=== PATIENT | male | born 1965 | race Caucasian/White ===

== ENCOUNTER 2019-09-15 21:01 | Inpatient (IN) | payer SELFPAY ==
[~2019-09-15] VITALS: Ht 177.8 cm; Wt 88.9 kg
[2019-09-15] MEDS ORDERED: ACETAMINOPHEN 325 MG TAB PO ONE (21:30)
[2019-09-15] MEDS ORDERED: ONDANSETRON HCL INJ 2MG/ML 2ML 2 MG/ML VIAL IV STA (22:02)
[2019-09-15] MEDS ORDERED: AZITHROMYCIN 500MG/NS 250 ML 250 ML IV ONE (22:15)
[2019-09-15] MEDS ORDERED: LIDOCAINE VISC 2% SOLN 15 ML UDC PO ONE (22:15)
[2019-09-15 23:37] LABS: BASOPHILS % 0.1 % (0.0-1.0); HEMATOCRIT 46.2 % (38.2-49.6); LYMPHOCYTES # (AUTO) 0.6 (1.0-3.2); LYMPHOCYTES % 4.2 % (18.0-39.1); MEAN CORPUSCULAR HGB CONC 34.6 g/dL (31-35); MEAN CORPUSCULAR VOLUME 83.7 fL (81-99); MONOCYTES # (AUTO) 0.4 (0.2-0.8); NEUTROPHILS # (AUTO) 13.3 (2.1-6.9); NEUTROPHILS % 91.8 % (38.7-80.0); PLATELET COUNT 234 x10e3/uL (140-360); RED BLOOD COUNT 5.52 x10e6/uL (4.3-5.7); RED CELL DISTRIBUTION WIDTH 12.8 % (11.7-14.4)
--- NOTE | 2019-09-15 23:38 | Diagnostic Imaging Report ---
EXAMINATION: CXR 2 VIEW - HOPD INDICATION: ^fever/cough/COVID+ COMPARISON: None FINDINGS: TUBES and LINES: None. LUNGS: Patchy opacity in the left lower lobe. Calcified granuloma in the mid right lung. PLEURA: No pleural effusion or pneumothorax. HEART AND MEDIASTINUM: The cardiomediastinal silhouette is unremarkable. BONES AND SOFT TISSUES: No acute osseous lesion. Soft tissues are unremarkable. UPPER ABDOMEN: No free air under the diaphragm. IMPRESSION: Patchy opacity in the left lower lobe concerning for pneumonia. Signed by: Rush Whitney MD on 09/15/2019 11:35 PM
[2019-09-16] VITALS (10 sets, daily range): BP systolic 112–158; BP diastolic 62–89
[2019-09-16] MEDS ORDERED: SODIUM CHLORIDE FLUSH 10 ML SYR INJ PRN (00:30)
[2019-09-16] MEDS ORDERED: CEFTRIAXONE SOD 1 GM/NS 50 ML 50 ML IV ONE (00:30)
--- OUTSIDE RECORDS SUMMARY | 2019-09-16 01:01 | XMS REPORT | Continuity of Care Document ---
Author Author [facility] Organization [facility] Address [address] [place] [id number] Phone Unavailable Care Team Providers [facility] Worker Name Role Phone Tyrone THOMSON Attphys Unavailable Problems This patient has no known problems. Allergies, Adverse Reactions, Alerts This patient has no known allergies or adverse reactions. Medications This patient has no known medications. Procedures This patient has no known procedures. Results Test Description Test Time Test Comments Results Result Comments Source CXR 2 VIEW - HOPD 2019-09-15 23:33:00 [place] [address] Patient Name: CHLOÉ CALLAHAN MR #: [id number] : 1965 Age/Sex: 54/M Req #: [id number] Adm Physician: Ordered by: MAT THOMSON MD Report #: [id number] Location: [facility] Room/Bed: Procedure: [id number] HOPD/CXR 2 VIEW - HOPD Exam Date: 09/15/19 Exam Time: 2225 REPORT STATUS: Signed EXAMINATION: CXR 2 VIEW - HOPD INDICATION: fever/cough/COVID+ COMPARISON: None FINDINGS: TUBES and LINES: None. LUNGS: Patchy opacity in the left lower lobe. Calcified granuloma in the mid right lung. PLEURA: No pleural effusion or pneumothorax. HEART AND MEDIASTINUM: The cardiomediastinal silhouette is unremarkable. BONES AND SOFT TISSUES: No acute osseous lesion. Soft tissues are unremarkable. UPPER ABDOMEN: No free air under the diaphragm. IMPRESSION: Patchy opacity in the left lower lobe concerning for pneumonia. Signed by: Gabriella Grissom MD on 09/15/2019 11:35 PM Dictated By: GABRIELLA GRISSOM MD 34 Transcribed By: MALKA on 09/15/192334 COPY TO: MAT THOMSON MD
--- NOTE | 2019-09-16 01:10 | NUR ---
PT ASLEEP LYING ON BACK. MASK IN PLACE NO OBVIOUS DISTRESS NOTED AT THIS TIME. NO COUGHING NOTED.
--- NOTE | 2019-09-16 01:20 | NUR ---
CALLED [facility] FOR TRANSPORT OF PT TO [facility] RM 180. ETA 30MINS
--- NOTE | 2019-09-16 01:54 | NUR ---
REPORT TO YOANA BURNS FOR RM 180 PMC. AWAITING EMS ARRIVAL
--- NOTE | 2019-09-16 02:02 | NUR ---
REPORTED CALLED FROM [facility], PATIENT PENDING ARRIVAL TO ROOM 180 ADMITTED FOR PUI COVID, DROPLET PRECAUTIONS, AOX3, ADMITTED FOR COUGH FEVER, CONCERNING PNA, CXR CONFIRMEDTOLD THAT PATIENT RECV'D ZITHROMAX AND CURRENTLY GETTING ROCEPHINE, CBC PREFORMED AT ER, NEXT LABS ON 09/17/19, FULL CODE NO KNOWN ALLERGIES, REGULAR DIET
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
--- NOTE | 2019-09-16 03:30 | NUR ---
PATIENT ARRIVED VIA EMS, ON STRETCHER AWAKE ALERT, ORIENTED x 4, COUGHING FORCEFULLY, MASK IN PLACE, PRECAUTION MEASURES IN PLACE, ISOLATION, SKIN WARM DRY, VITALS TAKEN, IV RIGHT AC PATENT, SITE INTACT, ORIENTED TO ROOM STAFF AND POLICIES, CALL LIGHT WITHIN REACH
--- NOTE | 2019-09-16 06:21 | NUR ---
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
[2019-09-16] MEDS: GUAIFENESIN 200 MG/10 ML UDC PO PRN ×3 (06:46→20:36)
[2019-09-16] MEDS ORDERED: HYDRALAZINE HCL 20 MG/ML VIAL IV PRN (08:45)
[2019-09-16] MEDS: ZINC SULFATE 220 MG CAP PO SCH (09:08)
[2019-09-16] MEDS: ENOXAPARIN SOD INJ 60 MG/0.6 ML SYR SC SCH ×2 (09:08→20:35)
[2019-09-16] MEDS: CHOLECALCIFEROL 400 UNIT TAB PO SCH (09:08)
[2019-09-16] MEDS: DEXAMETHASONE SOD PHOS INJ 4 MG/ML VIAL IV SCH (09:08)
[2019-09-16] MEDS: GUAIFENESIN 600MG/DEXTROMETHORPHAN 30MG TABSR PO PRN ×2 (09:08→17:00)
[2019-09-16] MEDS: ASCORBIC ACID 500 MG TAB PO SCH ×2 (09:08→16:59)
[2019-09-16] MEDS: ONDANSETRON HCL INJ 2MG/ML 2ML 2 MG/ML VIAL IV PRN ×3 (09:16→21:00)
[2019-09-16] MEDS ORDERED: ALBUTEROL SULFATE HFA 8GM INHALATION AEROSOL INH PRN (16:15)
--- NOTE | 2019-09-16 16:40 | NUR ---
This is a 54 year old male who recently tested presents with 10 days of cough occasionally productive yellow sputum, fever, chills, general malaise, muscle aches. Seen by outside freestanding ER and had a positive Covid to 7 days ago, returned 5 days ago to the same ER and had a CT chest which showed pneumonia symptoms consistent with Covid. Presents to the emergency department today because of worsening symptoms. No known sick contacts. Historian: Patient [id number]
--- NOTE | 2019-09-16 18:25 | Consultation ---
DATE OF CONSULTATION: REASON FOR CONSULTATION: COVID-19 and shortness of breath. HISTORY OF PRESENT ILLNESS: Mr. Rock is a very pleasant 54-year-old white male with no past medical history, who comes to emergency room for shortness of breath. The patient was diagnosed with COVID for about 10 days. The patient had productive yellow sputum, but he still has shortness of breath, so he came to the emergency room where he was admitted. He is currently on 2 L with coughing. PAST MEDICAL HISTORY: Otherwise denies. PAST SURGICAL HISTORY: Denies. ALLERGIES: NKA. SOCIAL HISTORY: There is no smoking, drug abuse, or alcohol abuse. FAMILY HISTORY: Unremarkable. REVIEW OF SYSTEMS: At the present time, beside the cough and shortness of breath he denies any. LABORATORY DATA: Reviewed. White count 14, hemoglobin 16, hematocrit 46. COVID was positive. IMPRESSION: 1. COVID-19 for 10 days. 2. Hypoxemia on 2 L. 3. Superimposed bacterial infection. RECOMMENDATION: Rocephin 1 g daily, azithromycin 500 mg daily for 3 days, Rocephin for 5 days, dexamethasone 6 mg daily, Lovenox 7.5 mg/kg q.12 hours. Oxygen as needed. We will observe the patient over the next few days. Discussed with the patient. We will follow. MD KIRTI Gordon/MODL /[id number]
--- NOTE | 2019-09-16 19:00 | NUR ---
Received the patient in report.stable condition.denied any needs.
[2019-09-16] MEDS: AZITHROMYCIN 500MG/NS 250 ML 250 ML IV SCH (20:35)
[2019-09-16] MEDS: ACETAMINOPHEN 325 MG TAB PO PRN (20:36)
[2019-09-16] MEDS: CEFTRIAXONE SOD 1 GM/NS 50 ML 50 ML IV SCH (21:38)
[2019-09-17] VITALS (7 sets, daily range): BP systolic 120–145; BP diastolic 77–83
--- NOTE | 2019-09-17 01:25 | NUR ---
RESTING IN THE BED.NO PAIN VOICED.STABLE CONDITION.
[2019-09-17] MEDS: GUAIFENESIN 200 MG/10 ML UDC PO PRN ×3 (02:46→20:08)
[2019-09-17] MEDS: ONDANSETRON HCL INJ 2MG/ML 2ML 2 MG/ML VIAL IV PRN ×2 (06:01→07:59)
[2019-09-17] MEDS: GUAIFENESIN 600MG/DEXTROMETHORPHAN 30MG TABSR PO PRN ×2 (06:01→07:59)
--- NOTE | 2019-09-17 06:02 | NUR ---
Patient has cough and nausea.medication given.blood rosalind and sent to the lab.pt tolerated well.
[2019-09-17 06:17] LABS: BASOPHILS % 0.1 % (0.0-1.0); HEMOGLOBIN 16.2 g/dL (14.0-18.0); LYMPHOCYTES # (AUTO) 0.5 (1.0-3.2); LYMPHOCYTES % 4.2 % (18.0-39.1); MEAN CORPUSCULAR HEMOGLOBIN 33.1 pg (28-32); MEAN CORPUSCULAR HGB CONC 37.7 g/dL (31-35); MEAN CORPUSCULAR VOLUME 87.9 fL (81-99); MONOCYTES # (AUTO) 0.5 (0.2-0.8); MONOCYTES % 3.9 % (4.4-11.3); NEUTROPHILS # (AUTO) 10.9 (2.1-6.9); NEUTROPHILS % 91.2 % (38.7-80.0); PLATELET COUNT 161 x10e3/uL (140-360); RED BLOOD COUNT 4.89 x10e6/uL (4.3-5.7); RED CELL DISTRIBUTION WIDTH 14.7 % (11.7-14.4)
--- NOTE | 2019-09-17 06:21 | NUR ---
vomited once.50 cc noted.
[2019-09-17 06:46] LABS: ANION GAP 16.3 mmol/L (8-16); BLOOD UREA NITROGEN 18 mg/dL (7-26); BUN/CREATININE RATIO 21 (6-25); CALCIUM 9.6 mg/dL (8.4-10.2); CARBON DIOXIDE 23 mmol/L (22-29); CHLORIDE 101 mmol/L (98-107); CREATININE, SERUM 0.87 mg/dL (0.72-1.25); EST GLOMERULAR FILTRATION RATE > 60 ML/MIN (60-); GLUCOSE 103 mg/dL (74-118); POTASSIUM 4.3 mmol/L (3.5-5.1); SODIUM 136 mmol/L (136-145)
--- NOTE | 2019-09-17 07:04 | NUR ---
REPORT GIVEN TO ONCOMING RN.STABLE CONDITION.
[2019-09-17] MEDS: ASCORBIC ACID 500 MG TAB PO SCH ×2 (07:57→18:00)
[2019-09-17] MEDS: ZINC SULFATE 220 MG CAP PO SCH (07:57)
[2019-09-17] MEDS: CHOLECALCIFEROL 400 UNIT TAB PO SCH (07:57)
[2019-09-17] MEDS: ACETAMINOPHEN 325 MG TAB PO PRN (07:58)
[2019-09-17] MEDS: ENOXAPARIN SOD INJ 60 MG/0.6 ML SYR SC SCH ×2 (07:58→21:14)
[2019-09-17] MEDS: DEXAMETHASONE SOD PHOS INJ 4 MG/ML VIAL IV SCH (08:22)
--- NOTE | 2019-09-17 08:30 | NUR ---
Pt oxygen saturation is 88-89% on 2L/NC. Pt does complain of shortness of breath with exertion. Oxygen increased to 4L/NC and saturation is 94%.
[2019-09-17] MEDS ORDERED: ASPIRIN325 MG PO (09:55)
[2019-09-17] MEDS ORDERED: VENTOLIN HFA18 GM INH (09:55)
[2019-09-17] MEDS ORDERED: DECADRON6 MG PO (09:55)
[2019-09-17] MEDS ORDERED: MUCINEX DM ER1 EACH PO (09:58)
--- NOTE | 2019-09-17 13:33 | NUR ---
INFECTIOUS DISEASE PROGRESS PAM DR TADEO HISTORY OF PRESENT ILLNESS: Mr. Rock is a very pleasant 54-year-old white male with no past medical history, who comes to emergency room for shortness of breath. The patient was diagnosed with COVID for about 10 days. The patient had productive yellow sputum, but he still has shortness of breath, so he came to the emergency room where he was admitted. He is currently on 2 L with coughing. REVIEW OF SYSTEMS: At the present time, beside the cough and shortness of breath he denies any. LABORATORY DATA: Reviewed. White count 14, hemoglobin 16, hematocrit 46. COVID was positive. IMPRESSION: 1. COVID-19 for 10 days. 2. Hypoxemia on 2 L. 3. Superimposed bacterial infection. RECOMMENDATION: Rocephin 1 g daily, azithromycin 500 mg daily for 3 days, Rocephin for 5 days, dexamethasone 6 mg daily, Lovenox 7.5 mg/kg q.12 hours. Oxygen as needed. We will observe the patient over the next few days. Discussed with the patient. We will follow. PT SEEN AND EVALUATED BY DR TADEO
[2019-09-17] MEDS ORDERED: REMDESIVIR 200MG/NS 100ML 200 MG in SODIUM CHLORIDE 0.9% 100 ML 100 ML IV ONE (14:00)
--- NOTE | 2019-09-17 15:00 | NUR ---
Dr. Abarca here to see patient and was made aware of need of increased oxygen. Dr. Abarca discussed use of remdesivir and patient was agreeable to use. Pt was given first dose and tolerated well.
--- NOTE | 2019-09-17 19:00 | NUR ---
Received the patient in report.lyeing in the bed.stable condition.
[2019-09-17] MEDS: AZITHROMYCIN 500MG/NS 250 ML 250 ML IV SCH (20:08)
[2019-09-17] MEDS: CEFTRIAXONE SOD 1 GM/NS 50 ML 50 ML IV SCH (21:14)
[2019-09-18] VITALS (8 sets, daily range): BP systolic 114–134; BP diastolic 78–90
--- NOTE | 2019-09-18 00:30 | NUR ---
Resting well during night.
--- NOTE | 2019-09-18 05:00 | NUR ---
Blood rosalind and sent to the lab.pt tolerated well.
[2019-09-18 06:05] LABS: BASOPHILS % 0.1 % (0.0-1.0); HEMOGLOBIN 14.6 g/dL (14.0-18.0); LYMPHOCYTES # (AUTO) 0.4 (1.0-3.2); LYMPHOCYTES % 5.9 % (18.0-39.1); MEAN CORPUSCULAR HEMOGLOBIN 29.3 pg (28-32); MEAN CORPUSCULAR HGB CONC 34.8 g/dL (31-35); MEAN CORPUSCULAR VOLUME 84.2 fL (81-99); MONOCYTES # (AUTO) 0.3 (0.2-0.8); MONOCYTES % 3.6 % (4.4-11.3); NEUTROPHILS # (AUTO) 6.6 (2.1-6.9); NEUTROPHILS % 89.6 % (38.7-80.0); PLATELET COUNT 207 x10e3/uL (140-360); RED BLOOD COUNT 4.99 x10e6/uL (4.3-5.7); RED CELL DISTRIBUTION WIDTH 12.5 % (11.7-14.4)
[2019-09-18 06:37] LABS: ALANINE AMINOTRANSFERASE 77 IU/L (0-55); ALBUMIN 2.7 g/dL (3.5-5.0); ALBUMIN/GLOBULIN RATIO 0.7 (0.8-2.0); ALKALINE PHOSPHATASE 84 IU/L (40-150); BLOOD UREA NITROGEN 19 mg/dL (7-26); BUN/CREATININE RATIO 26 (6-25); CALCIUM 8.8 mg/dL (8.4-10.2); CARBON DIOXIDE 23 mmol/L (22-29); CHLORIDE 104 mmol/L (98-107); CREATININE, SERUM 0.74 mg/dL (0.72-1.25); EST GLOMERULAR FILTRATION RATE > 60 ML/MIN (60-); GLUCOSE 117 mg/dL (74-118); SODIUM 137 mmol/L (136-145)
--- NOTE | 2019-09-18 06:58 | NUR ---
Report given to oncoming rn.stable condition.
--- NOTE | 2019-09-18 07:00 | NUR ---
RECEIVED PATIENT RESTING NO S/S OF DISTRESS. BED LOW, WHEELS LOCKED, SIDE RAILS X2. CALL LIGHT IN REACH. WILL CONTINUE TO MONITOR PATIENT.
[2019-09-18] MEDS: DEXAMETHASONE SOD PHOS INJ 4 MG/ML VIAL IV SCH (08:07)
[2019-09-18] MEDS: CHOLECALCIFEROL 400 UNIT TAB PO SCH (08:08)
[2019-09-18] MEDS: ENOXAPARIN SOD INJ 60 MG/0.6 ML SYR SC SCH ×2 (08:08→21:00)
[2019-09-18] MEDS: ZINC SULFATE 220 MG CAP PO SCH (08:08)
[2019-09-18] MEDS: ASCORBIC ACID 500 MG TAB PO SCH ×2 (08:08→16:01)
[2019-09-18] MEDS: GUAIFENESIN 200 MG/10 ML UDC PO PRN ×2 (08:10→20:35)
--- NOTE | 2019-09-18 09:15 | NUR ---
GAVE PACKET OF INFORMATION WITH [facility] [employer] FOR ASSISTANCE WITH LOW TO NO INCOME TO PATIENT. RESOURCES THAT PATIENT MAY BE ABLE TO FOLLOW UP UPON DISCHARGE. PT EDUCATED ON EACH RESOURCE AND UNDERSTANDING HOW TO FOLLOW UP TO SEE IF QUALIFIED FOR EACH RESOURCE.
[2019-09-18] MEDS: GUAIFENESIN 600MG/DEXTROMETHORPHAN 30MG TABSR PO PRN (09:36)
[2019-09-18] MEDS: REMDESIVIR 100MG/NS 100ML 100 MG in SODIUM CHLORIDE 0.9% 100 ML 100 ML IV SCH (14:49)
--- NOTE | 2019-09-18 16:35 | NUR ---
Mr. Rock is a very pleasant 54-year-old white male with no past medical history, who comes to emergency room for shortness of breath. The patient was diagnosed with COVID for about 10 days. The patient had productive yellow sputum, but he still has shortness of breath, so he came to the emergency room where he was admitted. PATIENT GOT WORSE YESTERDAY rmzv STARTED FEELING LITTLE BETTER NO NEW COMPLAINTS AND STILL COUGHING REVIEW OF SYSTEMS: At the present time, beside the cough and shortness of breath he denies any. LABORATORY DATA: Reviewed. White count 14, hemoglobin 16, hematocrit 46. COVID was positive. AO 3 NAD ON OXYGEN HEENT NOT PALE NOT ICTERIC NECK SUPPLE CHEST CRACKLES COR S1 S2 ABD SOFT NT EXT NO EDEMA NEURO NON FOCAL IMPRESSION: 1. COVID-19 for 10 days. 2. Hypoxemia on 2 L. 3. Superimposed bacterial infection. CONT ORDERED DISCUSSED WITH MEDICAL TEAM
--- NOTE | 2019-09-18 17:55 | Consultation ---
DATE OF CONSULTATION: Pulmonary Critical Care consultation CHIEF COMPLAINT: Cough and wheezing. The patient has fever and weakness for 7 days. HISTORY OF PRESENT ILLNESS: The patient is a 54-year-old man. He reports cough and fatigue for 7 days. He also notes weakness and muscle aches. He came to the emergency department and was found to have COVID-19. He was started on remdesivir. PAST SURGICAL HISTORY: Noncontributory. PAST MEDICAL HISTORY: 1. No prior history of asthma. 2. No prior history of diabetes. FAMILY HISTORY: Family history is significant for CVA and cancer. SOCIAL HISTORY: Noncontributory. SOCIAL HISTORY: No prior smoking or drinking. ALLERGIES: NO KNOWN DRUG ALLERGIES. REVIEW OF SYSTEMS: The patient does have some fevers. He has no headache. He is not having any neck pain. He has no chest pain. He does have some dyspnea and some cough. He has no abdominal pain. He has no nausea or vomiting. He has no leg edema. PHYSICAL EXAMINATION: VITAL SIGNS: The patient is afebrile. The vital signs are stable. Blood pressure is 121/78, saturation is 92% on 10 L. HEENT: No facial swelling or erythema. The oropharynx is normal. LYMPHATIC: No submandibular, cervical, or supraclavicular adenopathy. CARDIAC: Regular rate and rhythm with normal S1, S2. LUNGS: Auscultation of lungs reveals crackles and rhonchi in both lung mccoy. ABDOMEN: Soft, nontender. There is no rebound or guarding. EXTREMITIES: No leg edema or calf tenderness. There is no cyanosis or clubbing. LABORATORY DATA: BUN to creatinine ratio is normal. Electrolytes are within normal limits. White blood cell count is 7.3, hemoglobin is 14.6. The platelet count is 207. RADIOGRAPHIC DATA: Chest x-ray shows patchy opacity in the left lower lobe. IMPRESSION: Viral pneumonia and coronavirus disease-19 infection. PLAN: 1. Complete remdesivir. 2. Continue oxygen. 3. Dexamethasone. 4. Tylenol. Laith Lundberg MD [facility]/MADYSONL /[id number]
--- NOTE | 2019-09-18 19:00 | NUR ---
Patient visited in room during nursing rounds. Patient alert and oriented x3. COVID positive. Ambulatory in room prn. Pt on 10L Hi-flow NC and has intermittent productive cough. Sputum is clear in appearance. Pt on scheduled IV antibiotics. Call goode within reach. Will monitor closely.
[2019-09-18] MEDS: CEFTRIAXONE SOD 1 GM/NS 50 ML 50 ML IV SCH (21:45)
[2019-09-19] VITALS (7 sets, daily range): BP systolic 93–132; BP diastolic 77–94
[2019-09-19 05:25] LABS: BASOPHILS % 0.1 % (0.0-1.0); EOSINOPHILS % 0.1 % (0.0-6.0); HEMATOCRIT 39.2 % (38.2-49.6); HEMOGLOBIN 14.8 g/dL (14.0-18.0); LYMPHOCYTES # (AUTO) 0.6 (1.0-3.2); LYMPHOCYTES % 6.1 % (18.0-39.1); MEAN CORPUSCULAR HEMOGLOBIN 33.3 pg (28-32); MEAN CORPUSCULAR HGB CONC 37.8 g/dL (31-35); MEAN CORPUSCULAR VOLUME 88.3 fL (81-99); MONOCYTES # (AUTO) 0.7 (0.2-0.8); MONOCYTES % 7.1 % (4.4-11.3); NEUTROPHILS % 85.7 % (38.7-80.0); PLATELET COUNT 143 x10e3/uL (140-360); RED BLOOD COUNT 4.44 x10e6/uL (4.3-5.7)
[2019-09-19 05:45] LABS: ALANINE AMINOTRANSFERASE 52 IU/L (0-55); ALBUMIN 2.7 g/dL (3.5-5.0); ALBUMIN/GLOBULIN RATIO 0.8 (0.8-2.0); ALKALINE PHOSPHATASE 83 IU/L (40-150); ANION GAP 11.1 mmol/L (8-16); BLOOD UREA NITROGEN 19 mg/dL (7-26); BUN/CREATININE RATIO 28 (6-25); CALCIUM 8.5 mg/dL (8.4-10.2); CARBON DIOXIDE 23 mmol/L (22-29); CHLORIDE 105 mmol/L (98-107); CREATININE, SERUM 0.68 mg/dL (0.72-1.25); EST GLOMERULAR FILTRATION RATE > 60 ML/MIN (60-); GLUCOSE 100 mg/dL (74-118); POTASSIUM 4.1 mmol/L (3.5-5.1); SODIUM 135 mmol/L (136-145)
--- NOTE | 2019-09-19 07:00 | NUR ---
RECEIVED PATIENT RESTING NO S/S OF DISTRESS. BED LOW, WHEELS LOCKED, SIDE RAILS X2. CALL LIGHT IN REACH. WILL CONTINUE TO MONITOR PATIENT.
--- NOTE | 2019-09-19 07:01 | Progress Note ---
DATE: 09/18/2019 ADDENDUM: SUBJECTIVE: Mr. Rock was seen and examined on September 15, as mentioned above. PHYSICAL EXAMINATION: GENERAL: He is currently alert and oriented. Does not seem to be in acute distress. VITAL SIGNS: Stable, currently afebrile. HEENT: He is not icteric. NECK: Supple. CHEST: Few crackles. HEART: S1 and S2. ABDOMEN: Soft. IMPRESSION: COVID-19 pneumonia. Please refer to the orders. Discussed with the patient at length. MD KIRTI Gordon/MODFelipa /[id number]
[2019-09-19] MEDS: ASCORBIC ACID 500 MG TAB PO SCH ×2 (08:09→16:43)
[2019-09-19] MEDS: CHOLECALCIFEROL 400 UNIT TAB PO SCH (08:09)
[2019-09-19] MEDS: ZINC SULFATE 220 MG CAP PO SCH (08:09)
[2019-09-19] MEDS: DEXAMETHASONE SOD PHOS INJ 4 MG/ML VIAL IV SCH (08:09)
[2019-09-19] MEDS: ENOXAPARIN SOD INJ 60 MG/0.6 ML SYR SC SCH ×2 (08:09→21:00)
[2019-09-19] MEDS: GUAIFENESIN 200 MG/10 ML UDC PO PRN (09:12)
[2019-09-19] MEDS: GUAIFENESIN 600MG/DEXTROMETHORPHAN 30MG TABSR PO PRN (09:12)
[2019-09-19] MEDS: VANCOMYCIN 1GM/NS 250 ML 250 ML IV SCH (12:10)
--- NOTE | 2019-09-19 12:12 | NUR ---
PATIENT ON AIRVO 60L 88&% FIO2. O2 SATS 98%
[2019-09-19] MEDS: REMDESIVIR 100MG/NS 100ML 100 MG in SODIUM CHLORIDE 0.9% 100 ML 100 ML IV SCH (15:02)
[2019-09-19] MEDS: MEROPENEM 1GM 100 ML IV SCH ×2 (15:02→22:00)
--- NOTE | 2019-09-19 15:02 | NUR ---
PATIENT TRANSFERRED TO ROOM 187 IN STABLE CONDITION.
--- NOTE | 2019-09-19 15:37 | NUR ---
janae Rock was seen and examined , as mentioned above. PHYSICAL EXAMINATION: GENERAL: He is currently alert and oriented. Does not seem to be in acute distress. VITAL SIGNS: Stable, currently afebrile. HEENT: He is not icteric. NECK: Supple. CHEST: Few crackles. HEART: S1 and S2. ABDOMEN: Soft. IMPRESSION: COVID-19 pneumonia.
--- NOTE | 2019-09-19 17:54 | Progress Note ---
DATE: SUBJECTIVE: Mr. Rock is worse today. His oxygenation had to increase to 12 L. Vapotherm was started. He is feeling better now. He is more comfortable. Discussed with the medical team. PHYSICAL EXAMINATION: GENERAL: He is currently alert, oriented. VITALS: Stable, currently afebrile. HEENT: He is not icteric. NECK: Supple. CHEST: Crackles. IMPRESSION AND PLAN: Coronavirus disease-19 respiratory failure, on remdesivir, may be superimposed bacterial infection. Continue remdesivir to finish 5 days. Currently on meropenem and vancomycin. Continue Lovenox. Continue dexamethasone to finish 10 days. Continue supportive care. Discussed with the patient. Discussed with medical team at length. MD KIRTI Gordon/MODL /[id number]
[2019-09-20] VITALS: BP 117/81
[2019-09-20 04:00] VITALS: BP 121/75
[2019-09-20] MEDS: MEROPENEM 1GM 100 ML IV SCH ×3 (06:00→21:37)
[2019-09-20 06:26] LABS: BASOPHILS % 0.1 % (0.0-1.0); EOSINOPHILS % 0.3 % (0.0-6.0); HEMATOCRIT 42.3 % (38.2-49.6); HEMOGLOBIN 15.1 g/dL (14.0-18.0); LYMPHOCYTES # (AUTO) 0.7 (1.0-3.2); LYMPHOCYTES % 8.7 % (18.0-39.1); MEAN CORPUSCULAR HEMOGLOBIN 30.6 pg (28-32); MEAN CORPUSCULAR HGB CONC 35.7 g/dL (31-35); MEAN CORPUSCULAR VOLUME 85.6 fL (81-99); MONOCYTES # (AUTO) 0.6 (0.2-0.8); MONOCYTES % 7.5 % (4.4-11.3); NEUTROPHILS # (AUTO) 6.1 (2.1-6.9); NEUTROPHILS % 82.1 % (38.7-80.0); PLATELET COUNT 191 x10e3/uL (140-360); RED BLOOD COUNT 4.94 x10e6/uL (4.3-5.7); RED CELL DISTRIBUTION WIDTH 12.5 % (11.7-14.4)
[2019-09-20] MEDS: GUAIFENESIN 600MG/DEXTROMETHORPHAN 30MG TABSR PO PRN (06:26)
[2019-09-20 06:30] LABS: ALANINE AMINOTRANSFERASE 46 IU/L (0-55); ALBUMIN 2.7 g/dL (3.5-5.0); ALBUMIN/GLOBULIN RATIO 0.7 (0.8-2.0); ALKALINE PHOSPHATASE 79 IU/L (40-150); ANION GAP 13.1 mmol/L (8-16); BLOOD UREA NITROGEN 18 mg/dL (7-26); BUN/CREATININE RATIO 26 (6-25); CALCIUM 8.6 mg/dL (8.4-10.2); CARBON DIOXIDE 22 mmol/L (22-29); CHLORIDE 104 mmol/L (98-107); CREATININE, SERUM 0.69 mg/dL (0.72-1.25); EST GLOMERULAR FILTRATION RATE > 60 ML/MIN (60-); GLUCOSE 90 mg/dL (74-118); POTASSIUM 4.1 mmol/L (3.5-5.1); SODIUM 135 mmol/L (136-145)
[2019-09-20] MEDS: FAMOTIDINE 20 MG/2 ML VIAL IV SCH ×2 (09:04→18:04)
[2019-09-20] MEDS: DEXAMETHASONE SOD PHOS INJ 4 MG/ML VIAL IV SCH (09:04)
[2019-09-20] MEDS: ZINC SULFATE 220 MG CAP PO SCH (09:05)
[2019-09-20] MEDS: GUAIFENESIN 200 MG/10 ML UDC PO PRN (09:05)
[2019-09-20] MEDS: CHOLECALCIFEROL 400 UNIT TAB PO SCH (09:05)
[2019-09-20] MEDS: ASCORBIC ACID 500 MG TAB PO SCH ×2 (09:05→18:05)
[2019-09-20] MEDS: ENOXAPARIN SOD INJ 60 MG/0.6 ML SYR SC SCH ×2 (09:05→21:37)
[2019-09-20 10:27] VITALS: BP 117/79
[2019-09-20] MEDS: VANCOMYCIN 1GM/NS 250 ML 250 ML IV SCH ×2 (12:12)
[2019-09-20 13:30] VITALS: BP 133/76
--- NOTE | 2019-09-20 14:48 | NUR ---
Mr. Rock is worse today. His oxygenation had to increase to 12 L. Vapotherm was started. He is feeling better now. He is more comfortable. Discussed with the medical team. PHYSICAL EXAMINATION: GENERAL: He is currently alert, oriented. VITALS: Stable, currently afebrile. HEENT: He is not icteric. NECK: Supple. CHEST: Crackles. IMPRESSION AND PLAN: Coronavirus disease-19 respiratory failure, on remdesivir, may be superimposed bacterial infection. Continue remdesivir to finish 5 days. Currently on meropenem and vancomycin. Continue Lovenox. Continue dexamethasone to finish 10 days. Continue supportive care. Discussed with the patient. Discussed with medical team at length.
--- NOTE | 2019-09-20 15:23 | Progress Note ---
DATE: SUBJECTIVE: Mr. Rock is feeling slightly better today. He remains on oxygen. He is getting his remdesivir. PHYSICAL EXAMINATION: GENERAL: He is currently alert, oriented. VITAL SIGNS: Stable, afebrile. HEENT: He is not icteric. NECK: Supple. CHEST: Clear. HEART: S1, S2. ABDOMEN: Soft. Bowel sounds present. EXTREMITIES: No edema. SKIN: No rash. IMPRESSION AND PLAN: Respiratory failure, coronavirus disease-19. Continue treatment. We will follow. MD KIRTI Gordon/MODL /[id number]
[2019-09-20] MEDS: REMDESIVIR 100MG/NS 100ML 100 MG in SODIUM CHLORIDE 0.9% 100 ML 100 ML IV SCH (15:28)
[2019-09-20 16:25] VITALS: BP 123/78
[2019-09-20] MEDS: HYDROCODONE/CHLORPHENIRAMINE 5 ML LIQCR PO PRN (18:05)
--- NOTE | 2019-09-20 18:09 | Progress Note ---
DATE: SUBJECTIVE: The patient is currently on Airvo. He is on 90%. He has some coughing and desaturates with coughing. PHYSICAL EXAMINATION: VITAL SIGNS: The patient is afebrile. The blood pressure is 123/78 and the pulse is 70. Saturation is 93% on Airvo 60 with 92% oxygen. HEENT: No facial swelling or erythema. Oropharynx normal. LYMPHATIC: No submandibular, cervical, or supraclavicular adenopathy. CARDIAC: Regular rate and rhythm with normal S1, S2. LUNGS: Auscultation of lungs reveals clear breath sounds bilaterally. There is no wheezing. ABDOMEN: Soft, nontender. There is no rebound or guarding. EXTREMITIES: No leg or calf tenderness. There is no cyanosis or clubbing. SKIN: No rashes. NEUROLOGICAL: No focal abnormalities. LABORATORY DATA: White blood cell count is 7.48 and hemoglobin 16.1 and platelet count is 191. The BUN to creatinine ratio is 18 to 0.69. Albumin is 2.7 and sodium is 135. IMPRESSION: Viral pneumonia and coronavirus disease-19 infection. PLAN: 1. Complete remdesivir. 2. Continue oxygen. 3. Complete dexamethasone. 4. Tussionex cough syrup. 5. Increase oxygen on Airvo. 6. The patient should have two good peripheral IVs. Laith Lundberg MD [facility]/MODL /[id number]
[2019-09-20 20:00] VITALS: BP 124/76
[2019-09-21] VITALS: BP 107/79
[2019-09-21] MEDS: VANCOMYCIN 1GM/NS 250 ML 250 ML IV SCH ×2 (00:23→13:24)
[2019-09-21 04:05] VITALS: BP 123/73
[2019-09-21] MEDS: MEROPENEM 1GM 100 ML IV SCH ×3 (05:29→21:22)
[2019-09-21 08:21] VITALS: BP 133/66
[2019-09-21] MEDS: CHOLECALCIFEROL 400 UNIT TAB PO SCH (09:49)
[2019-09-21] MEDS: DEXAMETHASONE SOD PHOS INJ 4 MG/ML VIAL IV SCH (09:49)
[2019-09-21] MEDS: FAMOTIDINE 20 MG/2 ML VIAL IV SCH ×2 (09:49→17:08)
[2019-09-21] MEDS: ZINC SULFATE 220 MG CAP PO SCH (09:49)
[2019-09-21] MEDS: ASCORBIC ACID 500 MG TAB PO SCH ×2 (09:49→17:08)
[2019-09-21] MEDS: ENOXAPARIN SOD INJ 60 MG/0.6 ML SYR SC SCH ×2 (09:49→21:22)
[2019-09-21] MEDS: HYDROCODONE/CHLORPHENIRAMINE 5 ML LIQCR PO PRN (09:49)
[2019-09-21 13:19] VITALS: BP 124/72
[2019-09-21] MEDS: REMDESIVIR 100MG/NS 100ML 100 MG in SODIUM CHLORIDE 0.9% 100 ML 100 ML IV SCH (13:28)
[2019-09-21 16:00] VITALS: BP 117/76
[2019-09-21] MEDS ORDERED: LACTULOSE SYRUP 20 GM/30 ML UDC PO PRN (16:30)
--- NOTE | 2019-09-21 16:54 | Progress Note ---
DATE: SUBJECTIVE: Mr. Sanchez is feeling a little better. He is still on high oxygen. PHYSICAL EXAMINATION: GENERAL: He is on 60%. HEENT: He is not icteric. NECK: Supple. CHEST: Few crackles. HEART: S1-S2. No murmur. ABDOMEN: Soft. Bowel sounds present. EXTREMITIES: No edema. SKIN: No rash. IMPRESSION: Respiratory failure, coronavirus disease-19. On remdesivir, dexamethasone, antibiotic, and Lovenox. Continue as ordered. We will follow. MD KIRTI Gordon/MODFelipa /[id number]
[2019-09-21] MEDS: POLYETHYLENE GLYCOL 3350 17 GM PACK PO SCH (17:08)
--- NOTE | 2019-09-21 17:14 | NUR ---
Nutrition Intervention Note RD Recommendation(s) for Physician: - Continue Regular diet - Recommend Ensure Enlive TID for adequacy - Recommend MVI once daily for adequacy Plan of Care: RD following, monitoring for tolerance and adequacy, diet and supplement rec's Nutrition reason for involvement: LOS RD Assessment 09/20: 54 YOM admitted for COVID-19, PNA, and respiratory failure. Pt assessed today for LOS. Unable to obtain hx from pt, no answer when room phone called and unable to enter pt room per current isolation protocol. Pt with 25-50% intake since admit, not meeting needs. Chart reviewed. Rec's provided. Will continue to monitor. Principal Problems/Diagnoses: COVID-19, PNA, respiratory failure PMH: no PMH GI: LBM 09/17 Skin: No PU Labs: 09/19: Na 135, Cr 0.69 Meds: miralax, pepcid, vitamin C, abx, decadron, zinc sulfate, zofran, colace, lactulose PRN Ht:70 in Wt: 215 lb BMI: 30.8 kg/m2 IBW: 166 lb Malnutrition Evaluation (09/21/19) The patient does not meet criteria for a specified degree of malnutrition at this time. Will re-evaluate at follow-up as appropriate. Unable to assess per current COVID isolation protocol. Nutrition Prescription (Diet Order): Regular Estimated Nutritional Needs: 3986-7419 calories/day (22-25 kcal/kg IBW) 113-151 g protein/day (1.5-2 g pro/kg IBW) Diet Adequacy: Not meeting calorie needs, Not meeting protein needs Diet Tolerance: N/A Diet Education Needs Assessment: Diet education not indicated, pt on regular diet. Nutrition Care Level: mod- not meeting needs Nutrition Diagnosis: Inadequate energy and protein intake related to current medical condition as evidenced by not meeting needs. Goal: Patient will meet 75-100% of estimated needs by follow up Progress: N/A Interventions: -General healthful diet, Commercial beverage Monitoring/Evaluation: -Total energy intake, Total protein intake Signed: Eve Portillo RD, LD, [facility]
--- NOTE | 2019-09-21 17:50 | Diagnostic Imaging Report ---
Examination: Single AP view of the chest. COMPARISON: None. INDICATION: Cough, fever DISCUSSION: Lines/tubes: None. Lungs: Low lung volumes with scattered ground glass opacities most prominent in the periphery and lower lungs. Pleura: No pleural effusion or pneumothorax. Heart and mediastinum: The heart and the mediastinum are unremarkable. Bones and soft tissues: No acute bony abnormalities. IMPRESSION: Low lung volumes with multifocal pneumonia, likely viral Signed by: Dr. Burce Hubbard M.D. on 09/21/2019 5:47 PM
--- NOTE | 2019-09-21 18:00 | Progress Note ---
DATE: Pulmonary Critical Care Progress Note SUBJECTIVE: The patient feels slightly better. He has less dyspnea and less congestion. PHYSICAL EXAMINATION: VITAL SIGNS: Blood pressure is 117/76 and the pulse is 72. Saturation is 96%. He is on Airvo at 60 L with 80% FiO2. VITAL SIGNS: The patient is afebrile. HEENT: No facial swelling or erythema. CARDIAC: Regular rate and rhythm with normal S1, S2. LUNGS: Auscultation of the lungs shows crackles at the bases. There is no wheezing. ABDOMEN: Soft, nontender. There is no rebound or guarding. EXTREMITIES: No leg edema or calf tenderness. There is no cyanosis or clubbing. SKIN: No rashes. NEUROLOGICAL: No focal abnormalities. LABORATORY DATA: White blood cell count is 7.4 and hemoglobin is 15. The platelet count is 191. The BUN to creatinine ratio is 18 to 0.69. The other electrolytes are within normal limits. Total protein is 6.4. IMPRESSION: 1. Viral pneumonia and coronavirus disease-19. 2. Superimposed bacterial pneumonia. PLAN: 1. Continue to wean oxygen. 2. Complete antibiotics. 3. Complete dexamethasone. 4. Tussionex for cough as needed. Laith Lundberg MD [facility]/MODL /[id number]
[2019-09-21 20:00] VITALS: BP 121/77
[2019-09-21] MEDS: DOCUSATE SODIUM 100 MG CAP PO SCH (21:22)
[2019-09-22] VITALS (8 sets, daily range): BP systolic 110–122; BP diastolic 70–86
[2019-09-22] MEDS: VANCOMYCIN 1GM/NS 250 ML 250 ML IV SCH ×2 (00:17→12:24)
[2019-09-22] MEDS: MEROPENEM 1GM 100 ML IV SCH ×3 (06:07→20:30)
[2019-09-22 07:44] LABS: BASOPHILS % 0.2 % (0.0-1.0); EOSINOPHILS # (AUTO) 0.1 (0.0-0.4); EOSINOPHILS % 0.9 % (0.0-6.0); HEMOGLOBIN 14.6 g/dL (14.0-18.0); LYMPHOCYTES # (AUTO) 0.6 (1.0-3.2); LYMPHOCYTES % 9.6 % (18.0-39.1); MEAN CORPUSCULAR HGB CONC 34.8 g/dL (31-35); MEAN CORPUSCULAR VOLUME 83.5 fL (81-99); MONOCYTES # (AUTO) 0.5 (0.2-0.8); MONOCYTES % 6.8 % (4.4-11.3); NEUTROPHILS # (AUTO) 5.3 (2.1-6.9); NEUTROPHILS % 79.5 % (38.7-80.0); PLATELET COUNT 195 x10e3/uL (140-360); RED BLOOD COUNT 5.03 x10e6/uL (4.3-5.7); RED CELL DISTRIBUTION WIDTH 12.4 % (11.7-14.4)
[2019-09-22 08:14] LABS: ALANINE AMINOTRANSFERASE 47 IU/L (0-55); ALBUMIN 2.6 g/dL (3.5-5.0); ALBUMIN/GLOBULIN RATIO 0.7 (0.8-2.0); ALKALINE PHOSPHATASE 73 IU/L (40-150); ANION GAP 11.3 mmol/L (8-16); BLOOD UREA NITROGEN 17 mg/dL (7-26); BUN/CREATININE RATIO 24 (6-25); CALCIUM 8.7 mg/dL (8.4-10.2); CARBON DIOXIDE 25 mmol/L (22-29); CHLORIDE 102 mmol/L (98-107); EST GLOMERULAR FILTRATION RATE > 60 ML/MIN (60-); GLUCOSE 91 mg/dL (74-118); POTASSIUM 4.3 mmol/L (3.5-5.1); SODIUM 134 mmol/L (136-145)
[2019-09-22] MEDS: DOCUSATE SODIUM 100 MG CAP PO SCH ×3 (08:38→20:29)
[2019-09-22] MEDS: DEXAMETHASONE SOD PHOS INJ 4 MG/ML VIAL IV SCH (08:38)
[2019-09-22] MEDS: FAMOTIDINE 20 MG/2 ML VIAL IV SCH ×2 (08:38→16:31)
[2019-09-22] MEDS: POLYETHYLENE GLYCOL 3350 17 GM PACK PO SCH ×2 (08:39→15:12)
[2019-09-22] MEDS: CHOLECALCIFEROL 400 UNIT TAB PO SCH (08:39)
[2019-09-22] MEDS: ASCORBIC ACID 500 MG TAB PO SCH ×2 (08:39→16:31)
[2019-09-22] MEDS: ZINC SULFATE 220 MG CAP PO SCH (08:39)
[2019-09-22] MEDS: ENOXAPARIN SOD INJ 60 MG/0.6 ML SYR SC SCH ×2 (08:39→20:29)
[2019-09-22] MEDS: HYDROCODONE/CHLORPHENIRAMINE 5 ML LIQCR PO PRN ×2 (09:00→20:31)
--- NOTE | 2019-09-22 10:03 | Progress Note ---
DATE: CONSULTING PHYSICIANS: Dr. Beto Abarca with Infectious Disease and Dr. Laith Lundberg with Pulmonology Critical Care Medicine. SUBJECTIVE: The patient states he is "mellow" today having a few coughing spells other than that sign. He is asking for incentive spirometer to practice with it. His respiratory rate has been in the 30s at times, but currently appears relaxed with his respirations. His last bowel movement was about a week ago, complains of constipation. OBJECTIVE: VITAL SIGNS: Temperature 97.1, heart rate 89, blood pressure 124/72, respirations 31, oxygen saturation 93%. GENERAL: Supine in bed, in no acute distress. LUNGS: Respirations unlabored. He is on AIRVO 60 L/minute, FiO2 of 80%. HEENT: EOMI. NECK: Supple. CARDIOVASCULAR: Regular rate and rhythm. No murmur. Right arm infiltrated IV site and IV has been discontinued. ABDOMEN: Bowel sounds positive. Soft, nontender. No guarding. EXTREMITIES: Without pitting edema. No clubbing, cyanosis, or marked swelling or signs of DVT. NEUROLOGIC: GCS 15. Nonfocal. LABORATORY DATA: No new labs from today. Lab holiday. IMAGING: No new chest x-ray results. ASSESSMENT/PLAN: 1. COVID pneumonia with ARDS. Continue azithromycin/Rocephin, Remdesivir, Lovenox, zinc sulfate/vitamin C/vitamin D, wean oxygen as tolerated, Pulmonology and infectious Disease following, on vancomycin and Merrem. 2. Transaminitis. Today all LFTs within normal limits. Monitor. 3. Prophylaxis, Lovenox, Pepcid. We will start the patient on Colace and scheduled MiraLAX as well as p.r.n. lactulose. Billing code 54295. Time spent 35 minutes. Dictated by Devyn Hernandez, TAB MD [facility]elli[facility]/MODL /[id number]
--- NOTE | 2019-09-22 14:14 | Progress Note ---
DATE: SUBJECTIVE: The patient is currently on an Airvo. He is on 60 L with 57% and he is saturating well. He has less dyspnea. PHYSICAL EXAMINATION: VITAL SIGNS: The patient is afebrile. The blood pressure is 118/86 and his respiratory rate is in the low 20s. His pulse is 76. HEENT: No facial swelling or erythema. LYMPHATIC: No submandibular, cervical, or supraclavicular adenopathy. CARDIAC: Regular rate and rhythm with a normal S1, S2. LUNGS: Auscultation of lungs reveals rhonchorous breath sounds bilaterally. There is no wheezing. ABDOMEN: Soft, nontender. There is no rebound or guarding. EXTREMITIES: No leg edema or calf tenderness. There is no cyanosis or clubbing. SKIN: No rashes. NEUROLOGICAL: No focal abnormalities. LABORATORY DATA: CBC is within normal limits. BUN to creatinine ratio is normal. The other electrolytes are within normal limits. IMPRESSION: 1. Viral pneumonia and coronavirus disease-19 infection. 2. Superimposed bacterial pneumonia. PLAN: 1. Continue to decrease L flow on oxygen on Airvo. 2. Physical therapy. 3. Complete antibiotics. 4. Complete dexamethasone. Laith Lundberg MD [facility]/MODL /[id number]
--- NOTE | 2019-09-22 18:06 | Progress Note ---
DATE: SUBJECTIVE: Mr. Sanchez feeling slightly better. There are no new complaints and coughing is better. He is on 60L with 57%. OBJECTIVE: HEENT: Not icteric. NECK: Supple. CHEST: Clear. HEART: S1 and S2. ABDOMEN: Soft. IMPRESSION: COVID-19, respiratory failure, very slow progress. Continue as ordered. MD KIRTI Gordon/ROBBI /[id number]
[2019-09-23] VITALS (8 sets, daily range): BP systolic 93–128; BP diastolic 72–80
--- NOTE | 2019-09-23 01:12 | Progress Note ---
DATE: SUBJECTIVE: The patient is lying supine in bed. Denies any new problems or issues. States, overall he is doing well. Per documentation, the patient had 3 bowel movements today. OBJECTIVE: VITAL SIGNS: Temperature 97.4, heart rate 61, blood pressure 112/73, respirations 24, oxygen saturation 94%. GENERAL: Supine, in no acute distress. LUNGS: Respirations are nonlabored. He is currently on AIRVO 50 L/minute, FiO2 55% with oxygen saturation of 94% during encounter. HEENT: EOMI. NECK: Supple. CARDIOVASCULAR: Regular rate and rhythm without murmur. ABDOMEN: Bowel sounds positive. Soft, nontender. EXTREMITIES: No pitting edema. No clubbing, cyanosis, or signs of DVT. NEUROLOGICAL: GCS 15. Nonfocal. LABORATORY DATA: WBC 6.66, hemoglobin 14.6, hematocrit 42, platelets 195. Sodium 134, potassium 4.3, chloride 102, CO2 25, BUN 17, creatinine 0.70, estimated GFR greater than 60, glucose 91, calcium 8.7, total bilirubin 0.7, AST 21, ALT 47, alkaline phosphatase 73, total protein 6.2, albumin 2.6. No new chest x-ray results. ASSESSMENT/PLAN: 1. Coronavirus disease pneumonia with acute respiratory distress syndrome. Continue azithromycin, Rocephin, Lovenox, zinc sulfate, vitamin C, vitamin D. Pulmonology and Infectious Disease following. Continue vancomycin and Merrem per Infectious Disease. Wean oxygen as tolerated. 2. Transaminitis, resolved. 3. Prophylaxis. Lovenox and Pepcid. Billing code [id number]. Time spent 35 minutes. Dictated by Devyn Hernandez NP MD [facility]/MODL /[id number]
[2019-09-23] MEDS: MEROPENEM 1GM 100 ML IV SCH ×3 (06:00→22:00)
[2019-09-23] MEDS: DEXAMETHASONE SOD PHOS INJ 4 MG/ML VIAL IV SCH (09:53)
[2019-09-23] MEDS: CHOLECALCIFEROL 400 UNIT TAB PO SCH (09:53)
[2019-09-23] MEDS: DOCUSATE SODIUM 100 MG CAP PO SCH ×4 (09:53→21:20)
[2019-09-23] MEDS: POLYETHYLENE GLYCOL 3350 17 GM PACK PO SCH ×2 (09:53→15:13)
[2019-09-23] MEDS: ASCORBIC ACID 500 MG TAB PO SCH ×2 (09:53→16:55)
[2019-09-23] MEDS: FAMOTIDINE 20 MG/2 ML VIAL IV SCH ×2 (09:53→16:55)
[2019-09-23] MEDS: ZINC SULFATE 220 MG CAP PO SCH (09:53)
[2019-09-23] MEDS: VANCOMYCIN 1GM/NS 250 ML 250 ML IV SCH ×2 (12:45)
--- NOTE | 2019-09-23 15:54 | Progress Note ---
DATE: SUBJECTIVE: The patient is not having fevers. Overall, he feels improved. Overall, he was decreased to 50 L and 60%. PHYSICAL EXAMINATION: VITAL SIGNS: Stable. HEENT: Shows no facial swelling or erythema. CARDIAC: Reveals regular rate and rhythm with normal S1 and S2. LUNGS: Auscultation of lungs shows clear breath sounds bilaterally. There is no wheezing. ABDOMEN: Soft and nontender. There is no rebound or guarding. EXTREMITIES: Shows no leg edema or calf tenderness. There is no cyanosis or clubbing. SKIN: Shows no rashes. NEUROLOGICAL: Shows no focal abnormalities. LABORATORY DATA: The BUN to creatinine ratio is normal. The electrolytes are within normal limits. Albumin is 2.6. The white blood cell count is 6.6 and the hemoglobin is 14.6. The platelet count is 195. IMPRESSION: 1. Viral pneumonia and COVID-19 infection. 2. Superimposed bacterial pneumonia. PLAN: 1. Continue to decrease L flow and oxygen. 2. Physical therapy. 3. Complete antibiotics. 4. Complete dexamethasone. MD STEFANIE Felton/MADYSONL /[id number]
--- NOTE | 2019-09-23 16:34 | NUR ---
PROGRESS NOTE patient is doing much better he remains on oxygen and rhythm high flow but review of systems of the week of shortness of breath he denies any. His vitals stable afebrile. HEENT normocephalic no protected neck supple no JVD no lymphadenopathy chest crackles bilateral peripheral Hartness was toremove himself also present extremities no edema skin was prepared for depression covid 19 remission prepared for spray failure slowly better continue with anticoagulation patient finish his course of antibiotic and treatment continued oxygen as needed PTOT. Review chart reviewed
[2019-09-23] MEDS ORDERED: SOD PHOSPHATE/SOD BIPHOSPHATE ENEMA 132 ML BTL PR ONE (21:30)
[2019-09-24] VITALS: BP 124/78
[2019-09-24 04:00] VITALS: BP 128/82
[2019-09-24] MEDS: MEROPENEM 1GM 100 ML IV SCH ×3 (06:44→22:00)
[2019-09-24] MEDS: CHOLECALCIFEROL 400 UNIT TAB PO SCH (08:21)
[2019-09-24] MEDS: ASCORBIC ACID 500 MG TAB PO SCH ×2 (08:21→17:00)
[2019-09-24] MEDS: ZINC SULFATE 220 MG CAP PO SCH (08:21)
[2019-09-24] MEDS: DOCUSATE SODIUM 100 MG CAP PO SCH ×3 (08:21→21:00)
[2019-09-24] MEDS: FAMOTIDINE 20 MG/2 ML VIAL IV SCH ×2 (08:21→17:00)
[2019-09-24] MEDS: DEXAMETHASONE SOD PHOS INJ 4 MG/ML VIAL IV SCH (08:21)
[2019-09-24] MEDS: POLYETHYLENE GLYCOL 3350 17 GM PACK PO SCH ×2 (08:21→17:00)
[2019-09-24 08:22] VITALS: BP 131/84
[2019-09-24 08:23] VITALS: BP 131/84
[2019-09-24 11:52] VITALS: BP 127/85
--- NOTE | 2019-09-24 12:55 | NUR ---
pt blood draw x3 this am, unable to get labs at this time. pending vanc trough before admin. pt having urinary retention 900+ ml. aware. new orders recvd.
[2019-09-24 14:41] LABS: BASOPHILS % 0.2 % (0.0-1.0); HEMOGLOBIN 15.6 g/dL (14.0-18.0); LYMPHOCYTES # (AUTO) 0.3 (1.0-3.2); LYMPHOCYTES % 2.5 % (18.0-39.1); MEAN CORPUSCULAR HEMOGLOBIN 28.8 pg (28-32); MEAN CORPUSCULAR HGB CONC 33.9 g/dL (31-35); MONOCYTES # (AUTO) 0.4 (0.2-0.8); MONOCYTES % 2.8 % (4.4-11.3); NEUTROPHILS # (AUTO) 11.7 (2.1-6.9); PLATELET COUNT 228 x10e3/uL (140-360); RED BLOOD COUNT 5.41 x10e6/uL (4.3-5.7); RED CELL DISTRIBUTION WIDTH 12.6 % (11.7-14.4)
[2019-09-24 15:12] LABS: ANION GAP 12.5 mmol/L (8-16); BLOOD UREA NITROGEN 19 mg/dL (7-26); BUN/CREATININE RATIO 27 (6-25); CARBON DIOXIDE 25 mmol/L (22-29); CHLORIDE 102 mmol/L (98-107); EST GLOMERULAR FILTRATION RATE > 60 ML/MIN (60-); GLUCOSE 136 mg/dL (74-118); POTASSIUM 4.5 mmol/L (3.5-5.1); SODIUM 135 mmol/L (136-145)
[2019-09-24] MEDS ORDERED: SODIUM CHLORIDE 0.9% 500ML 500 ML IV ONE (15:15)
[2019-09-24] MEDS: VANCOMYCIN 1GM/NS 250 ML 250 ML IV SCH ×2 (15:41)
[2019-09-24 16:20] LABS: BACTERIA,URINE FEW /HPF; BILIRUBIN,URINE NEGATIVE (NEGATIVE); CLARITY,URINE CLEAR (CLEAR); COLOR,URINE YELLOW (YELLOW); KETONES,URINE NEGATIVE (NEGATIVE); LEUKOCYTE ESTERASE ,URINE NEGATIVE (NEGATIVE); NITRITE,URINE NEGATIVE (NEGATIVE); PROTEIN,URINE DIPSTICK NEGATIVE (NEGATIVE); RBC,URINE 0-5 /HPF (0-5); URINE UROBILINOGEN 0.2 mg/dL (0.2 - 1); WBC,URINE (MAN) 0-5 /HPF (0-5)
[2019-09-24 16:21] LABS: EPITHELIAL CELLS,URINE RARE /LPF
--- NOTE | 2019-09-24 17:39 | Progress Note ---
DATE: SUBJECTIVE: The patient had some difficulty urinating and had some urinary retention. He required a Byers. He also complains of constipation. PHYSICAL EXAMINATION: VITAL SIGNS: The blood pressure is 127/85 and the saturation is 96%. He is on Airvo at 50 L with 50%. HEENT: Shows no facial swelling or erythema. LYMPHATIC: Shows no submandibular, cervical, or supraclavicular adenopathy. CARDIAC: Reveals regular rate and rhythm with normal S1 and S2. LUNGS: Auscultation of lungs reveals clear breath sounds bilaterally. There is no wheezing. ABDOMEN: Soft and nontender. There is no rebound or guarding. EXTREMITIES: Shows no leg edema or calf tenderness. There is no cyanosis or clubbing. SKIN: Shows no rashes. LABORATORY DATA: White blood cell count is 12.5 and hemoglobin is 15.6. Electrolytes are pending. IMPRESSION: 1. Viral pneumonia and COVID-19 infection. 2. Superimposed bacterial pneumonia. 3. Urinary retention. 4. Constipation. PLAN: 1. Continue Airvo. 2. Begin Fosamax and avoid any medications, which would worsen urinary retention. 3. Complete antibiotics. 4. Lovenox. 5. Complete dexamethasone. 6. Physical therapy. MD STEFANIE Felton/ROBBI /[id number]
[2019-09-24 20:00] VITALS: BP 118/79
[2019-09-24] MEDS: TAMSULOSIN HCL 0.4 MG CAP PO SCH (21:30)
--- NOTE | 2019-09-24 21:52 | NUR ---
infectious disease progress note patient is feeling better so shortness of breath The patient had some difficulty urinating and had some urinary retention. He required a Byers. He also complains of constipation. PHYSICAL EXAMINATION: patient is alert oriented does not seem acute distress with stable VITAL SIGNS: The blood pressure is 127/85 and the saturation is 96%. He is on Airvo at 50 L with 50%. HEENT: Shows no facial swelling or erythema. normocephalic LYMPHATIC: Shows no submandibular, cervical, or supraclavicular adenopathy. CARDIAC: Reveals regular rate and rhythm with normal S1 and S2. LUNGS: Auscultation of lungs reveals clear breath sounds bilaterally. There is no wheezing. ABDOMEN: Soft and nontender. There is no rebound or guarding. EXTREMITIES: Shows no leg edema or calf tenderness. There is no cyanosis or clubbing. SKIN: Shows no rashes. LABORATORY DATA: White blood cell count is 12.5 and hemoglobin is 15.6. Electrolytes are pending. IMPRESSION: 1. Viral pneumonia and COVID-19 infection. 2. Superimposed bacterial pneumonia. 3. Urinary retention. 4. Constipation. continue as ordered discussed with medical team and agree with plan of care patient finished his antibiotic
[2019-09-25] VITALS (7 sets, daily range): BP systolic 106–122; BP diastolic 72–78
[2019-09-25] MEDS ORDERED: BISACODYL 10 MG SUPP PR ONE ×2 (02:00→11:00)
[2019-09-25] MEDS ORDERED: MINERAL OIL 132 ML BTL PR PRN (02:00)
--- NOTE | 2019-09-25 04:21 | Diagnostic Imaging Report ---
EXAM: Abdomen Radiograph 1 View(s) INDICATION: ^constipation, no BM s/p enema, +painful defecation attempts ^Y COMPARISON: None FINDINGS: Dilated loops of small bowel are identified in the left hemiabdomen measuring up to 3.9 cm. The colon is mildly dilated and air-filled. The stomach bubble is distended with air. IMPRESSION: Dilated loops of small bowel measuring up to 3.9 cm and mildly dilated colon. Findings could represent ileus or obstruction. Consider CT of the abdomen and pelvis with contrast or short-term radiographic follow-up. Signed by: Rush Whitney MD on 09/25/2019 4:17 AM
[2019-09-25] MEDS: MEROPENEM 1GM 100 ML IV SCH ×3 (05:53→22:23)
[2019-09-25 06:58] LABS: BASOPHILS % 0.1 % (0.0-1.0); EOSINOPHILS # (AUTO) 0.1 (0.0-0.4); EOSINOPHILS % 0.8 % (0.0-6.0); HEMATOCRIT 42.6 % (38.2-49.6); HEMOGLOBIN 14.5 g/dL (14.0-18.0); LYMPHOCYTES # (AUTO) 0.9 (1.0-3.2); LYMPHOCYTES % 12.1 % (18.0-39.1); MEAN CORPUSCULAR HEMOGLOBIN 29.1 pg (28-32); MEAN CORPUSCULAR VOLUME 85.4 fL (81-99); MONOCYTES # (AUTO) 0.5 (0.2-0.8); NEUTROPHILS % 78.8 % (38.7-80.0); PLATELET COUNT 185 x10e3/uL (140-360); RED BLOOD COUNT 4.99 x10e6/uL (4.3-5.7); RED CELL DISTRIBUTION WIDTH 12.7 % (11.7-14.4)
[2019-09-25 07:18] LABS: ALANINE AMINOTRANSFERASE 60 IU/L (0-55); ALBUMIN 2.5 g/dL (3.5-5.0); ALBUMIN/GLOBULIN RATIO 0.8 (0.8-2.0); ALKALINE PHOSPHATASE 76 IU/L (40-150); ANION GAP 10.1 mmol/L (8-16); BLOOD UREA NITROGEN 13 mg/dL (7-26); BUN/CREATININE RATIO 20 (6-25); CALCIUM 8.6 mg/dL (8.4-10.2); CARBON DIOXIDE 28 mmol/L (22-29); CHLORIDE 100 mmol/L (98-107); CREATININE, SERUM 0.64 mg/dL (0.72-1.25); EST GLOMERULAR FILTRATION RATE > 60 ML/MIN (60-); GLUCOSE 89 mg/dL (74-118); POTASSIUM 4.1 mmol/L (3.5-5.1); SODIUM 134 mmol/L (136-145)
[2019-09-25 07:40] LABS: MAGNESIUM 1.9 MG/DL (1.3-2.1)
[2019-09-25] MEDS: ASCORBIC ACID 500 MG TAB PO SCH ×2 (09:00→18:20)
[2019-09-25] MEDS: POLYETHYLENE GLYCOL 3350 17 GM PACK PO SCH ×2 (09:00→18:20)
[2019-09-25] MEDS: DOCUSATE SODIUM 100 MG CAP PO SCH ×3 (09:00→18:49)
[2019-09-25] MEDS: DEXAMETHASONE SOD PHOS INJ 4 MG/ML VIAL IV SCH (10:35)
[2019-09-25] MEDS: FAMOTIDINE 20 MG/2 ML VIAL IV SCH ×2 (10:37→18:20)
--- NOTE | 2019-09-25 10:53 | Consultation ---
DATE OF CONSULTATION: 09/25/2019 Urology consultation Consultation called by Dr. Schroeder service. CHIEF COMPLAINT/REASON FOR CONSULTATION: Retention, COVID positive. HISTORY OF PRESENT ILLNESS: Mr. Rock is admitted with COVID, complained of urinary retention and constipation. He has been taking aspirin and a Byers catheter was placed with a PVR of 900 mL per nursing. PAST MEDICAL HISTORY: As above. MEDICATIONS: Please see MAR. ALLERGIES: NKDA. SOCIAL HISTORY: No smoking. FAMILY HISTORY: None. REVIEW OF SYSTEMS: Noncontributory other than problems mentioned above for 12-organ systems PHYSICAL EXAMINATION: GENERAL: Male, in no acute distress. Sleeping comfortably. NECK: No JVD. CHEST: Symmetric. CV: Regular. ABDOMEN: No distention. : Male external genitalia. EXTREMITIES: No edema. NEUROLOGIC: . PSYCH: Unable to assess. SKIN: Intact. Normal color. PERTINENT LABORATORY DATA: Sodium 135, potassium 4.5, chloride 102, bicarb 25, BUN 19, creatinine 0.7, and glucose 136. Urinalysis normal. Hemoglobin 15, hematocrit 48, and platelet count 228,000. Abdominal x-ray, which is normal except for constipation. IMPRESSION: 1. Urinary retention. 2. Decreased sodium. 3. Leukocytosis. 4. Constipation. 5. Coagulopathy secondary to aspirin. 6. Presumed benign prostatic hypertrophy. PLAN: The patient has been begun on tamsulosin, after one week can try voiding trial. Defer the COVID discharge to the primary service. Defer constipation to the primary as well. Thank you for allowing me to participate in the care of your patient. We will be happy to follow along with you. MD EVON Tomlinson/MODL /[id number]
[2019-09-25] MEDS: SODIUM CHLORIDE 0.9% 1000ML 1,000 ML IV SCH (11:35)
[2019-09-25] MEDS ORDERED: SODIUM CHLORIDE 0.9% 50ML 50 ML ONE (12:04)
[2019-09-25] MEDS ORDERED: IOPAMIDOL 370 MG/ML 200 ML INFUS..BTL INJ ONE (12:04)
--- NOTE | 2019-09-25 13:40 | Diagnostic Imaging Report ---
EXAM: CT Abdomen and Pelvis WITH intravenous contrast INDICATION: Small bowel obstruction, constipation COMPARISON: KUB of 09/25/2019 TECHNIQUE: Abdomen and pelvis were scanned utilizing a multidetector helical scanner from the lung base to the pubic symphysis after administration of IV contrast. Coronal and sagittal reformations were obtained. Routine protocol was performed. Scan was performed during portal venous phase. IV CONTRAST: 100mL of Isovue 370 ORAL CONTRAST: None RADIATION DOSE: Total DLP: 871 mGy*cm Dose modulation, iterative reconstruction, and/or weight based adjustment of the mA/kV was utilized to reduce the radiation dose to as low as reasonably achievable. FINDINGS: LOWER THORAX: Bibasilar atelectasis. HEPATOBILIARY: No focal liver lesion. No biliary ductal dilation. Unremarkable gallbladder. SPLEEN: Splenomegaly to 14.7 cm. PANCREAS: No focal masses or ductal dilatation. ADRENALS: No adrenal nodules. KIDNEYS/URETERS: No hydronephrosis, stones, or solid mass lesions. PELVIC ORGANS/BLADDER: Byers catheter in the decompressed bladder. PERITONEUM / RETROPERITONEUM: No free air or fluid. LYMPH NODES: No lymphadenopathy. VESSELS: Unremarkable. GI TRACT: Increased stool burden in the rectum. No abnormal bowel thickening. No bowel obstruction. Normal appendix. BONES AND SOFT TISSUES: No acute osseous injury. No suspicious lytic or blastic lesions. IMPRESSION: No bowel obstruction. Increased stool burden in the rectum. Splenomegaly. Signed by: Siobhan Thomas MD on 09/25/2019 1:36 PM
[2019-09-25] MEDS: ZINC SULFATE 220 MG CAP PO SCH (13:53)
[2019-09-25] MEDS: CHOLECALCIFEROL 400 UNIT TAB PO SCH (13:53)
--- NOTE | 2019-09-25 14:07 | NUR ---
infectious disease progress note patient is feeling better so shortness of breath The patient had some difficulty urinating and had some urinary retention. He required a Byers. the patient now with small bowel obstruction Have some abdominal pain He also complains of constipation. PHYSICAL EXAMINATION: patient is alert oriented does not seem acute distress with stable VITAL SIGNS: The blood pressure is 127/85 and the saturation is 96%. He is on Airvo at 50 L with 50%. HEENT: Shows no facial swelling or erythema. normocephalic LYMPHATIC: Shows no submandibular, cervical, or supraclavicular adenopathy. CARDIAC: Reveals regular rate and rhythm with normal S1 and S2. LUNGS: Auscultation of lungs reveals clear breath sounds bilaterally. There is no wheezing. ABDOMEN: Soft and nontender. There is no rebound or guarding. EXTREMITIES: Shows no leg edema or calf tenderness. There is no cyanosis or clubbing. SKIN: Shows no rashes. LABORATORY DATA: White blood cell count is 12.5 and hemoglobin is 15.6. Electrolytes are pending. IMPRESSION: 1. Viral pneumonia and COVID-19 infection. 2. Superimposed bacterial pneumonia. 3. Urinary retention. 4. Constipation. concern about small bowel obstruction will get CT scans of the pelvis will follow
[2019-09-25] MEDS: VANCOMYCIN 1GM/NS 250 ML 250 ML IV SCH ×2 (15:23)
[2019-09-25] MEDS ORDERED: CITRATE OF MAGNESIA 300ML BOTTLE PO ONE (20:00)
[2019-09-25] MEDS: TAMSULOSIN HCL 0.4 MG CAP PO SCH (20:27)
[2019-09-26] VITALS (7 sets, daily range): BP systolic 104–123; BP diastolic 75–96
[2019-09-26] MEDS ORDERED: BISACODYL 5 MG TAB EC PO ONE ×3 (01:45→02:45)
[2019-09-26] MEDS: VANCOMYCIN 1GM/NS 250 ML 250 ML IV SCH ×2 (02:45→16:29)
[2019-09-26] MEDS: SODIUM CHLORIDE 0.9% 1000ML 1,000 ML IV SCH (05:51)
[2019-09-26] MEDS: MEROPENEM 1GM 100 ML IV SCH ×4 (05:52→22:22)
[2019-09-26] MEDS: ONDANSETRON HCL INJ 2MG/ML 2ML 2 MG/ML VIAL IV PRN (06:58)
[2019-09-26] MEDS: FAMOTIDINE 20 MG/2 ML VIAL IV SCH ×2 (09:52→16:40)
[2019-09-26] MEDS: POLYETHYLENE GLYCOL 3350 17 GM PACK PO SCH ×2 (09:53→16:34)
[2019-09-26] MEDS: ASCORBIC ACID 500 MG TAB PO SCH ×2 (09:53→16:40)
[2019-09-26] MEDS: DOCUSATE SODIUM 100 MG CAP PO SCH ×3 (09:53→20:20)
[2019-09-26] MEDS: CHOLECALCIFEROL 400 UNIT TAB PO SCH (09:53)
--- NOTE | 2019-09-26 14:17 | NUR ---
This infectious disease progress note. September 26, 2019. Patient is doing better. Review of systems is not a new. Physical examination is currently alert oriented vitals stable afebrile HEENT normocephalic neck supple chest crackles bilaterally heart of S2 abdomen soft Covid 19 Respiratory failure cont as planned
[2019-09-26] MEDS ORDERED: LACTATED RINGER'S 500 ML INJ ONE (15:45)
--- NOTE | 2019-09-26 16:15 | Progress Note ---
DATE: SUBJECTIVE: The patient is now having bowel movements after receiving laxatives. He is still on Vapotherm at 50% with 50 L. PHYSICAL EXAMINATION: VITAL SIGNS: The patient is afebrile. The blood pressure is 112/80 and the saturation is 93%. Pulse is 93. HEENT: Shows no facial swelling or erythema. The oropharynx is normal. LYMPHATIC: Shows no submandibular, cervical or supraclavicular adenopathy. CARDIAC: Reveals a regular rate and rhythm with normal S1 and S2. LUNGS: Auscultation of lungs reveals crackles at the bases. There is no wheezing. ABDOMEN: Soft and nontender. There is no rebound or guarding. EXTREMITIES: Shows no leg edema or calf tenderness. There is no cyanosis or clubbing. SKIN: Shows no rashes. NEUROLOGICAL: Shows no focal abnormalities. LABORATORY DATA: CBC is within normal limits. IMPRESSION: 1. Viral pneumonia and COVID-19 infection. 2. Urinary retention. 3. Constipation. PLAN: 1. Judicious use of IV fluids. 2. Decrease L flow and Airvo 45 and continue oxygen at 50%. 3. Complete antibiotics. 4. Physical therapy. 5. Lovenox. Laith Lundberg MD [facility]/MODL /[id number]
--- NOTE | 2019-09-26 17:09 | NUR ---
Nutrition Intervention Note RD Recommendation(s) for Physician: - As feasible, ADAT to Regular diet - Recommend Ensure Enlive TID for adequacy - Recommend MVI once daily for adequacy Plan of Care: RD following, monitoring for tolerance and adequacy, diet and supplement rec's Nutrition reason for involvement: follow up RD Assessment 09/25: Follow up. Pt previously on clear liquids, advanced to full liquids this afternoon- tolerance pending. Called pt room, no answer. Rec's provided, RD to order Ensure Enlive TID. Chart reviewed. Will continue to monitor. 09/20: 54 YOM admitted for COVID-19, PNA, and respiratory failure. Pt assessed today for LOS. Unable to obtain hx from pt, no answer when room phone called and unable to enter pt room per current isolation protocol. Pt with 25-50% intake since admit, not meeting needs. Chart reviewed. Rec's provided. Will continue to monitor. Principal Problems/Diagnoses: COVID-19, PNA, respiratory failure PMH: no PMH GI: LBM 09/25- liquid, on bowel regimen and previously constipated Skin: stage I PU buttocks Labs: 09/25: Na 134, K 4.1, BUN 13, Cr 0.64, Gluc 99, Phos 3, Mg 1.9 09/19: Na 135, Cr 0.69 Meds: miralax, pepcid, vitamin C, abx, zinc sulfate, zofran, colace, lactulose PRN Ht:70 in Wt: 215 lb BMI: 30.8 kg/m2 IBW: 166 lb Malnutrition Evaluation (09/21/19) The patient does not meet criteria for a specified degree of malnutrition at this time. Will re-evaluate at follow-up as appropriate. Unable to assess per current COVID isolation protocol. Nutrition Prescription (Diet Order): full liquids, previously on clear liquids Estimated Nutritional Needs: [id number] calories/day (22-25 kcal/kg IBW) 113-151 g protein/day (1.5-2 g pro/kg IBW) Diet Adequacy: Not meeting calorie needs, Not meeting protein needs Diet Tolerance: pending- full liquids Diet Education Needs Assessment: Diet education not indicated, pt on transitional diet. Nutrition Care Level: mod- not meeting needs Nutrition Diagnosis: Inadequate energy and protein intake related to current medical condition as evidenced by not meeting needs. Goal: Patient will meet 75-100% of estimated needs by follow up Progress: progressing Interventions: -General healthful diet, Commercial beverage, vitamin/mineral supplement Monitoring/Evaluation: -Total energy intake, Total protein intake, supplement, modified diet Signed: Eve Portillo RD, LD, [facility]
[2019-09-26] MEDS: TAMSULOSIN HCL 0.4 MG CAP PO SCH (20:22)
[2019-09-26] MEDS: ENOXAPARIN SOD INJ 60 MG/0.6 ML SYR SC SCH (21:04)
[2019-09-27] VITALS (9 sets, daily range): BP systolic 99–128; BP diastolic 70–97
[2019-09-27 04:35] LABS: BASOPHILS % 0.2 % (0.0-1.0); EOSINOPHILS # (AUTO) 0.1 (0.0-0.4); EOSINOPHILS % 0.9 % (0.0-6.0); HEMATOCRIT 42.4 % (38.2-49.6); HEMOGLOBIN 14.7 g/dL (14.0-18.0); LYMPHOCYTES # (AUTO) 0.8 (1.0-3.2); LYMPHOCYTES % 8.5 % (18.0-39.1); MEAN CORPUSCULAR HEMOGLOBIN 29.5 pg (28-32); MEAN CORPUSCULAR HGB CONC 34.7 g/dL (31-35); MEAN CORPUSCULAR VOLUME 85.1 fL (81-99); MONOCYTES # (AUTO) 0.6 (0.2-0.8); MONOCYTES % 6.6 % (4.4-11.3); NEUTROPHILS # (AUTO) 7.4 (2.1-6.9); NEUTROPHILS % 83.4 % (38.7-80.0); PLATELET COUNT 172 x10e3/uL (140-360); RED BLOOD COUNT 4.98 x10e6/uL (4.3-5.7); RED CELL DISTRIBUTION WIDTH 12.5 % (11.7-14.4)
[2019-09-27] MEDS: VANCOMYCIN 1GM/NS 250 ML 250 ML IV SCH ×2 (04:54→15:52)
[2019-09-27 04:55] LABS: ALANINE AMINOTRANSFERASE 39 IU/L (0-55); ALBUMIN 2.6 g/dL (3.5-5.0); ALBUMIN/GLOBULIN RATIO 0.8 (0.8-2.0); ALKALINE PHOSPHATASE 72 IU/L (40-150); ANION GAP 14.9 mmol/L (8-16); BLOOD UREA NITROGEN 12 mg/dL (7-26); BUN/CREATININE RATIO 17 (6-25); CALCIUM 8.9 mg/dL (8.4-10.2); CARBON DIOXIDE 25 mmol/L (22-29); CHLORIDE 100 mmol/L (98-107); CREATININE, SERUM 0.69 mg/dL (0.72-1.25); EST GLOMERULAR FILTRATION RATE > 60 ML/MIN (60-); GLUCOSE 94 mg/dL (74-118); POTASSIUM 3.9 mmol/L (3.5-5.1); SODIUM 136 mmol/L (136-145)
[2019-09-27] MEDS: MEROPENEM 1GM 100 ML IV SCH ×3 (06:29→20:41)
[2019-09-27] MEDS: CHOLECALCIFEROL 400 UNIT TAB PO SCH (08:03)
[2019-09-27] MEDS: FAMOTIDINE 20 MG/2 ML VIAL IV SCH ×2 (08:03→17:05)
[2019-09-27] MEDS: DOCUSATE SODIUM 100 MG CAP PO SCH ×3 (08:03→20:41)
[2019-09-27] MEDS: POLYETHYLENE GLYCOL 3350 17 GM PACK PO SCH ×2 (08:03→17:05)
[2019-09-27] MEDS: ENOXAPARIN SOD INJ 60 MG/0.6 ML SYR SC SCH ×2 (08:03→20:41)
[2019-09-27] MEDS: ASCORBIC ACID 500 MG TAB PO SCH ×2 (08:03→17:05)
--- NOTE | 2019-09-27 16:44 | Progress Note ---
DATE: SUBJECTIVE: Mr. Rock slowly getting better. He is still on Vapotherm, 50% and 50 L. PHYSICAL EXAMINATION: GENERAL: Currently alert and oriented. VITAL SIGNS: Stable, currently afebrile. HEENT: Not icteric. NECK: Supple. CHEST: Crackles bilateral. HEART: S1 and S2. ABDOMEN: Soft. Bowel sounds present. EXTREMITIES: No edema. SKIN: No rash. IMPRESSION: COVID-19, respiratory failure. Continue to wean down slowly. Continue plan of care. Oxygen, anticoagulation for the time being. Surveillance for pneumonia. MD KIRTI Gordon/MODL /[id number]
--- NOTE | 2019-09-27 17:14 | Progress Note ---
DATE: SUBJECTIVE: The patient is now on nasal cannula. He is on 4 L. He has less dyspnea. PHYSICAL EXAMINATION: VITAL SIGNS: The patient is afebrile. The blood pressure is 99/70 and his heart rate is 100 to 110 on nasal cannula 4 L. HEENT: Shows no facial swelling or erythema. CARDIAC: Reveals regular rate and rhythm with normal S1 and S2. LUNGS: Auscultation of lungs reveals rhonchorous breath sounds bilaterally. There is no wheezing. ABDOMEN: Soft, nontender. There is no rebound or guarding. IMPRESSION: 1. Acute respiratory failure. 2. Viral pneumonia and coronavirus disease-2019 infection. 3. Constipation. 4. Urinary retention. PLAN: 1. Continue to wean oxygen. 2. Physical therapy. 3. Judicious use of IV fluids. 4. Complete antibiotics. Laith Lundberg MD [facility]/MODL /[id number]
--- NOTE | 2019-09-27 17:14 | Progress Note ---
DATE: 09/25/2019 DATE OF SERVICE: September 25, 2019. CONSULTING PHYSICIANS: 1. Dr. Beto Abarca with Infectious Disease. 2. Dr. Rusty Ellis with Urology. 3. Dr. Laith Lundberg with Pulmonology. 4. Dr. William Nguyen with Gastroenterology. SUBJECTIVE: The patient was seen in room 187 in [facility] still in isolation at about 9:00 p.m. on 09/25/2019. The patient having "really small" bowel movements, no abdominal pain, positive flatus, no nausea/vomiting. He has good appetite. No loss of sense of taste or smell. He has been on a regular diet, but not eating lately. He has had problems with constipation. Byers catheter was placed yesterday due to urinary retention. OBJECTIVE: VITAL SIGNS: Temperature 97.1, afebrile, pulse 72, blood pressure 109/75, respirations 18, and oxygen saturation 96%. GENERAL: No acute distress. Supine in bed. LUNGS: Clear to auscultation. Currently on Airvo at 50 L/minute. FiO2 51% with oxygen saturation 94% during encounter. HEENT: EOMI. NECK: Supple. CARDIOVASCULAR: Regular rate and rhythm without murmur. Normal saline infusing at 50 mL an hour IV. ABDOMEN: Bowel sounds are positive. Soft, slightly tender to gentle palpation. No guarding. EXTREMITIES: No pitting edema. No clubbing, cyanosis, or signs of DVT. NEUROLOGICAL: GCS 15, nonfocal. LABORATORY DATA: WBC 7.6, hemoglobin 14.5, hematocrit 42.6, platelets 185. Sodium 134, potassium 4.1, chloride 100, CO2 of 28, anion gap 10.1, BUN 13, creatinine 0.64, estimated GFR greater than 60, glucose 89, calcium 8.6, total bilirubin 0.7, AST 20, ALT 60, alkaline phosphatase 76. Total protein 5.7, albumin 2.5, phosphorus 3, magnesium 1.9. Vancomycin trough 5.1. IMAGING: KUB showed dilated loops of small bowel and mildly dilated colon; possible ileus versus small bowel obstruction. CT of the abdomen and pelvis per official report from radiologist shows no bowel obstruction, increased stool burden in the rectum, splenomegaly. ASSESSMENT AND PLAN: 1. COVID-19 pneumonia with acute respiratory distress syndrome. Infectious Disease and Pulmonology follows. Continue Merrem and vancomycin per Infectious Disease. Vancomycin troughs have been within normal limits. Continue Lovenox, zinc sulfate, vitamin C, vitamin D. Wean oxygen as tolerated. 2. Possible ileus versus small bowel obstruction. Gastroenterology follows, magnesium citrate ordered by Dr. Nguyen. The patient had been on a regular diet, but I changed him to n.p.o. this morning. Hopefully with the laxatives added gentle hydration with normal saline IV, the patient will have a bowel movement soon. 3. Urinary retention, Byers catheter in situ. Urology following. Byers catheter has been placed, monitor. 4. Transaminitis. ALT 60. Monitor. * Prophylaxis. Lovenox and Pepcid. Billing code [id number]. Time spent 35 minutes. Dictated by Devyn Hernandez NP Maulik Schroeder MD [facility]/MODL /[id number]
--- NOTE | 2019-09-27 17:30 | Progress Note ---
DATE: 09/24/2019 Date of Service: 09/24/2019. CONSULTANTS: Dr. Beto Abarca with Infectious Disease and Dr. Laith Lundberg with Pulmonology Critical Care Medicine. SUBJECTIVE: The patient has been on the toilet this morning, states "he was on the toilet last night from 6:30 pm to 10:30 pm". He is also complaining of urinary retention, thus a bladder scan was done and a Byers catheter inserted. He has not had a BM in some time, he is passing gas, he has had an enema and he has had painful defecation attempts, but thus far no BM. He does have hemorrhoids, so this is especially painful. Yesterday he ate very well, today no breakfast or lunch. Minimal cough. The patient is seen about 4:00 pm in the afternoon on 09/24/2019. OBJECTIVE: VITAL SIGNS: Temperature 98.6, heart rate 84, blood pressure 128/82, respirations 19, oxygen saturation 96%. GENERAL: No acute distress. Mild discomfort. LUNGS: Respirations mildly labored with elevated respiratory rate at times. He is on Airvo 50 L/minute, FiO2 of 51% with oxygen saturation 97% during encounter. HEENT: EOMI. NECK: Supple. No JVD. CARDIOVASCULAR: Regular rate and rhythm without murmur. ABDOMEN: Bowel sounds positive. Soft, nontender. Byers catheter with neda urine. EXTREMITIES: No pitting edema. No clubbing, cyanosis, or marked swelling or signs of DVT. NEUROLOGICAL: GCS 15. Nonfocal. DIAGNOSTICS: Labs; WBC 12.57, hemoglobin 15.6, hematocrit 46, platelets 228,000. Sodium 135, potassium 4.5, chloride 102, CO2 25, anion gap 12.5, BUN 19, creatinine 0.7, estimated GFR greater than 60, glucose 136, calcium 9. Urinalysis done today is negative. Urine specific gravity greater than or equal to 1.03. Urine pH 6.5. Vancomycin trough level 7.1. He had no growth after 5 five days from blood cultures collected on 09/14. IMAGING: No new chest x-ray results. ASSESSMENT/PLAN: 1. COVID-19 pneumonia with ARDS: Continue Merrem and vancomycin per Infectious Disease. Continue vitamin C, vitamin D, zinc sulfate, and Lovenox. Wean oxygen as tolerated. Increased intra-abdominal, pressure pushing on the diaphragm likely affecting the patient's ability to breathe adequately with complaints of constipation. We will ask that Dulcolax suppository be given and at the time of the digital rectal examination the patient to be disimpacted p.r.n. We will get a KUB now to evaluate. 2. Transaminitis, resolved. 3. Prophylaxis. Lovenox and Pepcid. Billing code [id number]. Time spent 35 minutes. Dictated by Devyn Hernandez, TAB Maulik Schroeder MD [facility]/MODL /[id number]
--- NOTE | 2019-09-27 17:30 | Progress Note ---
DATE: 09/23/2019 CONSULTANTS: Dr. Beto Abarca with Infectious Disease and Dr. Laith Lundberg with Pulmonology Critical Care Medicine. SUBJECTIVE: The patient complained of constipation and is requesting an enema. No acute distress. The patient is seen about 1:00 p.m. on 09/23/2019. OBJECTIVE: VITAL SIGNS: Temperature 98.0, heart rate 72, blood pressure 93/78, respirations 20, oxygen saturation 92%. GENERAL: Supine in no acute distress. LUNGS: Respirations unlabored. He is currently on Airvo 50 L/minute and FiO2 of 50%. He uses non-rebreather mask on occasion as well. HEENT: EOMI. NECK: Supple. CARDIOVASCULAR: Regular rate and rhythm without murmur. ABDOMEN: Bowel sounds positive. Soft, nontender. EXTREMITIES: No pitting edema. No clubbing, cyanosis, or marked swelling. NEUROLOGICAL: GCS 15. Nonfocal. DIAGNOSTICS: Lab holiday today. IMAGING: No new chest x-ray results. ASSESSMENT/PLAN: 1. COVID-19 pneumonia with ARDS. Continue Merrem and vancomycin per Infectious Disease. Continue Lovenox, vitamin C, vitamin D, zinc sulfate. Oxygen saturation at the time of encounter 92%. Wean oxygen as tolerated per Pulmonology. 2. Transaminitis, resolved. 3. Prophylaxis. Lovenox and Pepcid. Billing code [id number]. Time spent 35 minutes. Dictated by Devyn Hernandez NP Maulik Schroeder MD [facility]/MODL /[id number]
--- NOTE | 2019-09-27 18:08 | NUR ---
Skilled PT services not indicated at this time since patient is Mod i in functional mobility. Thank you Addendum: 09/27/19 at 1809 by Neil gonzalez PT Amended: Links added.
[2019-09-27] MEDS: TAMSULOSIN HCL 0.4 MG CAP PO SCH (20:41)
[2019-09-27] MEDS: BENZONATATE 100 MG CAP PO PRN (20:41)
[2019-09-28] VITALS (8 sets, daily range): BP systolic 110–130; BP diastolic 68–91
[2019-09-28] MEDS: VANCOMYCIN 1GM/NS 250 ML 250 ML IV SCH ×2 (02:59→15:03)
[2019-09-28 04:35] LABS: BASOPHILS % 0.1 % (0.0-1.0); EOSINOPHILS # (AUTO) 0.1 (0.0-0.4); EOSINOPHILS % 1.2 % (0.0-6.0); HEMATOCRIT 40.4 % (38.2-49.6); HEMOGLOBIN 13.9 g/dL (14.0-18.0); LYMPHOCYTES # (AUTO) 0.6 (1.0-3.2); LYMPHOCYTES % 9.5 % (18.0-39.1); MEAN CORPUSCULAR HEMOGLOBIN 29.3 pg (28-32); MEAN CORPUSCULAR HGB CONC 34.4 g/dL (31-35); MEAN CORPUSCULAR VOLUME 85.2 fL (81-99); MONOCYTES # (AUTO) 0.6 (0.2-0.8); MONOCYTES % 8.9 % (4.4-11.3); NEUTROPHILS # (AUTO) 5.4 (2.1-6.9); NEUTROPHILS % 79.9 % (38.7-80.0); PLATELET COUNT 148 x10e3/uL (140-360); RED BLOOD COUNT 4.74 x10e6/uL (4.3-5.7); RED CELL DISTRIBUTION WIDTH 12.3 % (11.7-14.4)
[2019-09-28 04:53] LABS: ALANINE AMINOTRANSFERASE 28 IU/L (0-55); ALBUMIN 2.5 g/dL (3.5-5.0); ALBUMIN/GLOBULIN RATIO 0.7 (0.8-2.0); ALKALINE PHOSPHATASE 73 IU/L (40-150); ANION GAP 12.1 mmol/L (8-16); BLOOD UREA NITROGEN 10 mg/dL (7-26); BUN/CREATININE RATIO 15 (6-25); CALCIUM 8.6 mg/dL (8.4-10.2); CARBON DIOXIDE 27 mmol/L (22-29); CHLORIDE 99 mmol/L (98-107); CREATININE, SERUM 0.66 mg/dL (0.72-1.25); EST GLOMERULAR FILTRATION RATE > 60 ML/MIN (60-); GLUCOSE 93 mg/dL (74-118); POTASSIUM 4.1 mmol/L (3.5-5.1); SODIUM 134 mmol/L (136-145)
[2019-09-28] MEDS: MEROPENEM 1GM 100 ML IV SCH ×3 (06:23→19:20)
[2019-09-28] MEDS: ASCORBIC ACID 500 MG TAB PO SCH ×2 (08:39→17:20)
[2019-09-28] MEDS: ENOXAPARIN SOD INJ 60 MG/0.6 ML SYR SC SCH ×2 (08:39→19:20)
[2019-09-28] MEDS: CHOLECALCIFEROL 400 UNIT TAB PO SCH (08:39)
[2019-09-28] MEDS: DOCUSATE SODIUM 100 MG CAP PO SCH ×3 (08:39→19:20)
[2019-09-28] MEDS: FAMOTIDINE 20 MG/2 ML VIAL IV SCH ×2 (08:39→17:20)
[2019-09-28] MEDS: POLYETHYLENE GLYCOL 3350 17 GM PACK PO SCH ×2 (08:39→17:20)
--- NOTE | 2019-09-28 13:15 | NUR ---
Infectious disease progress note patient seen and examined chart reviewed. Discussed with medical team. Lab data review chart reviewed medication list reviewed. Patient continued to improve shortness of breath is better her oxygenation requirement is better. he patient is now on nasal cannula. He is on 4 L. He has less dyspnea. PHYSICAL EXAMINATION: VITAL SIGNS: The patient is afebrile. The blood pressure is 99/70 and his heart rate is 100 to 110 on nasal cannula 4 L. HEENT: Shows no facial swelling or erythema. CARDIAC: Reveals regular rate and rhythm with normal S1 and S2. LUNGS: Auscultation of lungs reveals rhonchorous breath sounds bilaterally. There is no wheezing. ABDOMEN: Soft, nontender. There is no rebound or guarding. IMPRESSION: 1. Acute respiratory failure. 2. Viral pneumonia and coronavirus disease-2019 infection. 3. Constipation. 4. Urinary retention. PLAN: 1. Continue to wean oxygen. 2. Physical therapy. 3. Judicious use of IV fluids. 4. Complete antibiotics. start discharge planning for tomorrow with home oxygen no anticoagulation cough syrup as needed albuterol inhaler as needed
--- NOTE | 2019-09-28 15:35 | NUR ---
ORDERS FOR HOME 02 SATS 87% ON ROOM AIR CHOICE LETTER SIGNED FOR [facility] PH [phone] CLINICALS FAXED TO [facility] AT [phone] PT STATES FOR ES TO CALL HIS TO SECURE CREDIT CARD INFORMATION CONFIRMED PHONE NUMBERS AND ADDRESS WITH PT CHOICE LETTER ON FRONT OF CHART AND COPY TO PT PT AWARE OF 120.00 PER MONTH FOR 02 AND AGREEABLE SPOKE WITH GEN AT [facility] WHO WILL CALL ME WHEN CREDIT CARD INFORMATION VERIFIED PT INSTRUCTED TO CALL ES AT [phone] WHEN HE GETS HOME FOR CONCENTRATOR DELIVERY
--- NOTE | 2019-09-28 17:06 | Progress Note ---
DATE: SUBJECTIVE: The patient is feeling better. His oxygen is down to 3 L. His Byers catheter was removed. PHYSICAL EXAMINATION: VITAL SIGNS: Blood pressure is 112/80, saturation is 94% on 3 L. HEENT: No facial swelling or erythema. LYMPHATIC: No submandibular, cervical, or supraclavicular adenopathy. CARDIAC: Regular rate and rhythm with normal S1, S2. LUNGS: Auscultation of lungs reveals rhonchorous breath sounds bilaterally. There is no wheezing. ABDOMEN: Soft, nontender. There is no rebound or guarding. EXTREMITIES: No leg edema or calf tenderness. There is no cyanosis or clubbing. SKIN: No rashes. LABORATORY DATA: White blood cell count is 6.7, hemoglobin is 13.9. The platelet count is 148. BUN to creatinine ratio is normal. The other electrolytes are within normal limits. Albumin is 2.5. IMPRESSION: 1. Acute respiratory failure. 2. Viral pneumonia and coronavirus disease-19 infection. 3. Urinary retention. 4. Constipation. PLAN: 1. Continue physical therapy. 2. Monitor urinary retention after removing Byers. 3. Complete antibiotics. 4. Lovenox. 5. Possible discharge home soon. Laith Lundberg MD [facility] /[id number]
[2019-09-28] MEDS ORDERED: MELATONIN 5 MG TABLET PO PRN (19:15)
[2019-09-28] MEDS: TAMSULOSIN HCL 0.4 MG CAP PO SCH (19:20)
[2019-09-28] MEDS: BENZONATATE 100 MG CAP PO PRN (19:20)
[2019-09-28] MEDS: ACETAMINOPHEN 325 MG TAB PO PRN (20:02)
[2019-09-29] VITALS: BP 104/78
[2019-09-29] MEDS ORDERED: POLYETHYLENE GLYCOL 3350 17 GM PACK PO ONE (02:45)
[2019-09-29 02:49] LABS: BASOPHILS % 0.2 % (0.0-1.0); EOSINOPHILS # (AUTO) 0.1 (0.0-0.4); EOSINOPHILS % 1.2 % (0.0-6.0); HEMATOCRIT 40.5 % (38.2-49.6); HEMOGLOBIN 14.2 g/dL (14.0-18.0); LYMPHOCYTES # (AUTO) 0.7 (1.0-3.2); MEAN CORPUSCULAR HEMOGLOBIN 29.3 pg (28-32); MEAN CORPUSCULAR HGB CONC 35.1 g/dL (31-35); MEAN CORPUSCULAR VOLUME 83.7 fL (81-99); MONOCYTES # (AUTO) 0.6 (0.2-0.8); MONOCYTES % 10.1 % (4.4-11.3); NEUTROPHILS # (AUTO) 4.6 (2.1-6.9); PLATELET COUNT 149 x10e3/uL (140-360); RED BLOOD COUNT 4.84 x10e6/uL (4.3-5.7); RED CELL DISTRIBUTION WIDTH 12.4 % (11.7-14.4)
[2019-09-29 03:08] LABS: ALANINE AMINOTRANSFERASE 25 IU/L (0-55); ALBUMIN 2.5 g/dL (3.5-5.0); ALBUMIN/GLOBULIN RATIO 0.7 (0.8-2.0); ALKALINE PHOSPHATASE 74 IU/L (40-150); ANION GAP 12.2 mmol/L (8-16); BLOOD UREA NITROGEN 10 mg/dL (7-26); BUN/CREATININE RATIO 15 (6-25); CALCIUM 8.8 mg/dL (8.4-10.2); CARBON DIOXIDE 27 mmol/L (22-29); CHLORIDE 100 mmol/L (98-107); CREATININE, SERUM 0.67 mg/dL (0.72-1.25); EST GLOMERULAR FILTRATION RATE > 60 ML/MIN (60-); GLUCOSE 97 mg/dL (74-118); POTASSIUM 4.2 mmol/L (3.5-5.1); SODIUM 135 mmol/L (136-145)
[2019-09-29] MEDS: VANCOMYCIN 1GM/NS 250 ML 250 ML IV SCH (03:21)
[2019-09-29 04:33] VITALS: BP 115/79
[2019-09-29] MEDS: MEROPENEM 1GM 100 ML IV SCH (05:41)
[2019-09-29 07:46] VITALS: BP 104/78
[2019-09-29] MEDS: POLYETHYLENE GLYCOL 3350 17 GM PACK PO SCH ×2 (09:00→09:54)
[2019-09-29 09:31] VITALS: BP 104/78
[2019-09-29] MEDS: FAMOTIDINE 20 MG/2 ML VIAL IV SCH (09:54)
[2019-09-29] MEDS: ENOXAPARIN SOD INJ 60 MG/0.6 ML SYR SC SCH (09:54)
[2019-09-29] MEDS: ASCORBIC ACID 500 MG TAB PO SCH (09:54)
[2019-09-29] MEDS: CHOLECALCIFEROL 400 UNIT TAB PO SCH (09:54)
[2019-09-29] MEDS: DOCUSATE SODIUM 100 MG CAP PO SCH (09:54)
--- NOTE | 2019-09-29 11:00 | NUR ---
WOUND CARE SCREENING CONSULT FOR 54 YO MALE ADMITTED TO [facility] WITH HX OF COVID 19; PNEUMONIA. RAYNE 20 ON CONSERVATIVE PUP STATUS AND INTERVENTIONS SURFACE: ALTERNATING PRESSURE MATTRESS. NURSING REQUESTED WOUND CARE SCREENING CONSULT SKIN ASSESSMENT COMPLETE PATIENT PRESENTS NO OPEN WOUNDS PRESENT AT THIS TIME; RED BLANCHABLE AREA TO SACRO GLUTEAL FOLD; MEASURING 6 CM X 2 CM. RECOMMENDATIONS NURSING TO CONTINUE TO MONITOR PATIENT AND KEEP SKIN CLEAN AND FREE FROM STOOL OR IRRITATING MOISTURE, TO CONTINUE FOLLOWING CONSERVATIVE PUP INTERVENTIONS DAILY AND TO APPLY REMEDY SKIN BARRIER NEEDED. NURSING TO ENCOURAGE PT TO SELF REPOSITION IN BED NEEDED. NURSING TO CONTINUE VISCO MATTRESS. NURSING TO CONTINUE TO OFFLOAD FEET AND HEELS AT ALL TIMES WITH PILLOW SUSPENSION WHEN IN BED. NURSING TO ASSIST PT OUT OF BED FOR MEALS AND NEEDED. NURSING TO CONTINUE TO ASSIST WITH PT NUTRITIONAL SUPPLEMENTS TO ENSURE PROPER REQUIREMENTS FOR HEALING. NURSING TO RE- CONSULT WOUND CARE NEEDED. Addendum: 09/29/19 at 1501 by Sara Mckinney RN Amended: Links added.
[2019-09-29 11:37] VITALS: BP 142/77
[2019-09-29 12:30] VITALS: BP 111/81
[2019-09-29] MEDS: ACETAMINOPHEN 325 MG TAB PO PRN (13:25)
--- NOTE | 2019-09-29 14:25 | NUR ---
Patient discharged home, verbalized understanding of discharge instructions.
--- NOTE | 2019-09-29 20:07 | Discharge Summary ---
ADMISSION DIAGNOSES: 1. Coronavirus disease pneumonia with acute respiratory distress and sepsis, present on admission. 2. Obesity with a BMI of 30.8. DISCHARGE DIAGNOSES: 1. Coronavirus disease pneumonia with acute respiratory distress and sepsis, present on admission. 2. Obesity with a BMI of 30.8. HISTORY: None. SURGICAL HISTORY: None. FAMILY HISTORY: The patient's dad and brother had cancer. The patient's dad and aunt had a stroke. SOCIAL HISTORY: Noncontributory. HOSPITAL COURSE: A 54-year-old male with no past medical history, admits with complaints of worsening productive cough, muscle aches and weakness for 10 days. Seven days ago, he tested positive for COVID in a freestanding ER. His symptoms continued to worsen, so he came to [facility]. On admission, chest x-ray showed patchy opacity in the left lower lobe concerning for pneumonia. His COVID test was possible and initially the patient was on room air, the nasal cannula and eventually required Airvo. During hospitalization, the patient was unable to have a bowel movement for many days, so a KUB was done that showed dilated loops of small bowel, mildly dilated colon. Findings could represent ileus versus obstruction. So, CT of the abdomen was done, which showed no bowel obstruction, increased stool burden in the rectum. The patient was given Mag citrate, MiraLAX, bisacodyl, and Colace. Eventually, the patient was cleared. The patient was again able to wean down on his oxygen to 3 L. At time of discharge, the patient still qualifies for home oxygen, which was arranged. Infectious Disease and Pulmonology agreed to discharge. The patient will discharge home with albuterol inhaler, aspirin, and Mucinex. He does not need any more antibiotics per Infectious Disease. He will follow up with primary care, Pulmonology, and Dr. Abarca in 1 to 2 weeks. The patient understands instructions and agrees to plan. Vital signs are stable. The patient is afebrile. Dictated by Светлана Cm NP MD [facility]L /[id number]
== END 2019-09-29 14:43 | disposition home or self-care (01) | DRG 871 ==
LOC: FSED 21:38 → ERHOLD 09-16 00:23 → IMCU 09-16 03:12
PROVIDERS: ADMIT Internal Medicine; ATTEND Internal Medicine
PROC: 8E0ZXY6 Isolation (ICD-10-PCS; 2019-09-16)
PROC: XW033E5 Introduction of Remdesivir Anti-infective into Peripheral Vein, Percutaneous Approach, New Technology Group 5 (ICD-10-PCS; principal; 2019-09-17)
DX: A41.89 Other specified sepsis (principal); U07.1 COVID-19; J12.89 Other viral pneumonia; J15.9 Unspecified bacterial pneumonia; J96.01 Acute respiratory failure with hypoxia; D68.8 Other specified coagulation defects; E66.9 Obesity, unspecified; Z68.30 Body mass index [BMI] 30.0-30.9, adult; R09.02 Hypoxemia; Z82.3 Family history of stroke; Z80.9 Family history of malignant neoplasm, unspecified; K59.00 Constipation, unspecified; R33.9 Retention of urine, unspecified; D29.1 Benign neoplasm of prostate; Z79.82 Long term (current) use of aspirin; T39.015A Adverse effect of aspirin, initial encounter
CPT/HCPCS: 36415; 71045; 71046; 74018; 74177; 80048; 80053; 80076; 80202; 81001; 83735; 84100; 84443; 85025; 87040; 96365; 96374; 97139; 99284; J0456; J0696; J1100; J1650; J2405; J3370; J7030; J7040; Q9967; U0002